=== PATIENT | female | born 1960 | race Caucasian/White ===

== ENCOUNTER 2016-12-18 03:04 | Inpatient (IN) ==
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
[2016-12-18] MEDS ORDERED: 0.9 % Sodium Chloride 1,000 ML IVC ONE (03:18)
[2016-12-18] MEDS ORDERED: Ketorolac 30 MG/ML VIAL IVP ONE (03:28)
[2016-12-18 03:44] LABS: Basophils # 0.1 K/mcL (0.0-0.2); Basophils % 0.7 %; Eosinophils # 0.2 K/mcL (0.0-0.6); Eosinophils % 1.8 %; Hemoglobin 13.6 g/dL (11.5-15.4); Immature Granulocytes % 0.5 % (0-4); Lymphocytes # 1.9 K/mcL (0.6-4.6); Lymphocytes % 22.5 %; Mean Corpuscular Hemoglobin 29.2 pg (28.0-33.3); Mean Corpuscular Volume 85.8 fL (83.0-100.0); Mean Platelet Volume 10.6 fL (9.4-12.4); Monocytes # 0.6 K/mcL (0.0-1.3); Monocytes % 7.3 %; Neutrophils # 5.6 K/mcL (1.6-8.9); Platelet Count 241 K/mcL (140-400); Red Blood Count 4.66 M/mcL (3.82-4.97); Red Cell Distribution Width 16.3 % (11.5-14.5); Segmented Neutrophils % 67.2 %
[2016-12-18 03:51] LABS: Calcium 8.5 mg/dL (8.6-10.8)
[2016-12-18 03:52] LABS: Potassium 2.5 mEq/L (3.5-4.5)
[2016-12-18] MEDS ORDERED: Potassium Effervescent 25 MEQ TABLET.EFF PO ONE (04:00)
[2016-12-18] MEDS ORDERED: Potassium Phosphate 44 MEQ in 0.9 % Sodium Chloride 250 ML IVPB ONE (04:01)
--- NOTE | 2016-12-18 07:49 | Internal Med History&Physical ---
Date of Encounter: 12/18/16 Time of Encounter: 07:44 Assessment and Plan (1) Syncope Current visit: Yes Status: Acute Patient presents with recurrent syncope due to orthostasis. She is on multiple blood pressure lowering medications including 80 mg Lasix as well as spironolactone for lower extremity swelling but not heart failure.. Hold blood pressure lowering medications. Hydrate patient. Check orthostatic vital signs. I would also check the dimer. Presentation is not suggestive of seizures. Prior cardiac workup showed no occlusive disease. CT scan of the head was performed because of head trauma and there is no bleed Qualifiers: Syncope type: unspecified Qualified Code(s): R55 - Syncope and collapse (2) Hypokalemia Current visit: Yes Status: Acute This will be replaced and rechecked. Also magnesium will be checked and replaced accordingly Internal Medicine - H&P: HPI Chief complaint: syncope History of present illness: Ms. Solorzano is a 56 year old female with multiple medical problems presents the emergency room today after syncopal episode. Over the past 1 1/2 month patient is having episodes of syncope mainly when standing up preceded by a period of lightheadedness. Patient regains consciousness soon as she falls down. She has never had any seizure like activity that was witnessed, no incontinence to urine or stool or tongue biting. Patient denies any focal weakness. Occasionally hits her head during these episodes. She had a similar episode yesterday she was walking at home passed out and hit her head. She was found to be hypotensive on arrival to ER 80/60. Patient is taking multiple blood pressure lowering medications including 80 mg of Lasix as well as spironolactone. She mentioned that she had lost about 20 pounds in the past 6 months. She denies any shortness of breath orthopnea paroxysmal nocturnal dyspnea. She mentions that Lasix is being taken for lower extremity swelling. She denies any chest pain or palpitations prior to these episodes. She denies any recent febrile illness. She had a coronary angiogram recently performed and mentioned that there was no occlusive disease. She denies any hematemesis, melena or hematochezia. Past Med Surg Social Fam HX - Past Medical History Medical history: aortic aneurysm, asthma, diabetes, hyperlipidemia, migraine Psychiatric history: ADHD, bipolar, schizophrenia, other - Past Surgical History Surgical History: , cholecystectomy, hysterectomy, knee replacement, orthopedic, other, pacemaker/AICD, other - Social History Smoking Status: Current every day smoker Packs per day: 1 Smokeless Tobacco Status: No Alcohol use: rarely Drug use: none - Family History Mother Living Status: Still Living Father Living Status: Still Living Internal Medicine - H&P: Meds Asenapine Maleate [Saphris] 5 mg SL HS 06/02/15 [History] Baclofen [Lioresal] 5 mg PO BID 06/02/15 [History] ClonazePAM [Clonazepam] 1 mg PO TID 06/02/15 [History] Levomilnacipran HCl [Fetzima] 120 mg PO QAM 06/02/15 [History] Topiramate [Topamax] 100 mg PO BID 06/02/15 [History] TraMADol [Ultram] 50 mg PO Q6H PRN 06/02/15 [History] Albuterol Neb [Proventil Neb] 2.5 mg IH BID PRN 07/12/15 [History] Albuterol Sulfate [Proair Respiclick] 2 puff IH Q4-6H PRN 07/12/15 [History] Amiloride [Midamor] 5 mg PO BID 07/12/15 [History] Armodafinil [Nuvigil] 250 mg PO DAILY 07/12/15 [History] Bupropion HBr [Aplenzin] 522 mg PO QAM 07/12/15 [History] Carbidopa/Levodopa ER 50/200 [Sinemet ER 50-200 Tab] 1 each PO HS 07/12/15 [ History] Cetirizine HCl [Zyrtec] 10 mg PO QPM 07/12/15 [History] Dextroamphetamine Sulfate [Dexedrine] 30 mg PO BID 07/12/15 [History] Docusate [Colace] 100 mg PO BID 07/12/15 [History] Eletriptan HBr [Relpax] 40 mg PO AD PRN 07/12/15 [History] Estradiol [Vivelle-Dot] 1 each TD 2XW 07/12/15 [History] Lubiprostone [Amitiza] 24 mcg PO BID 07/12/15 [History] Mometasone/Formoterol [Dulera 200 Mcg/5 Mcg Inhaler] 2 puff IH BID 07/12/15 [ History] Montelukast [Singulair] 10 mg PO QAM 07/12/15 [History] Naproxen [Naprosyn] 500 mg PO BID PRN 07/12/15 [History] Pantoprazole Sodium 40 mg PO BID 07/12/15 [History] Potassium Chloride 10 meq PO DAILY 07/12/15 [History] Prochlorperazine Maleate [Compazine] 10 mg PO Q8HR PRN 07/12/15 [History] Rosuvastatin [Crestor] 10 mg PO DAILY 07/12/15 [History] Sucralfate [Carafate] 1 gm PO TID 07/12/15 [History] Torsemide [Demadex] 40 mg PO BID 07/12/15 [History] Meclizine [Antivert] 25 mg PO TID PRN #21 tablet 07/13/15 [Rx] LevETIRAcetam [Keppra] 500 mg IV BID #60 vial 09/11/15 [Rx] Allergies oxcarbazepine [From Trileptal] Allergy (Verified 07/12/15 15:55) See Comments Patient unsure of reaction. Penicillins Allergy (Verified 07/12/15 15:55) Hives ezetimibe [From Zetia] Adverse Reaction (Verified 07/12/15 15:55) Vomiting All Systems PM: A 10-system review of systems was performed and is negative for pertinent findings except as documented above in the HPI. Review of systems: 10 point review systems is negative except for HPI. - Constitutional Vitals: Temp Pulse Resp BP Pulse Ox 97.7 F 63 16 97/67 96 12/18/16 07:39 12/18/16 07:39 12/18/16 07:39 12/18/16 07:39 12/18/16 07:39 Exam: Gen.: patient is alert oriented times 3 not in distress cardiac: normal S1 S2 no additional sounds are murmurs chest: clear to auscultation abdomen: soft nontender nondistended lower extremity lax calf muscles no swelling Neuro: no focal deficits Internal Med - H&P Results - Labs CBC & Chem 7: 12/18/16 03:20 12/18/16 03:20
[2016-12-18 09:02] LABS: Bilirubin,Urine Negative (Negative); Blood,Urine Negative (Negative); Clarity,Urine Cloudy (Clear); Color,Urine Yellow (Yellow); Glucose,Urine (UA) Normal (Normal); Ketones,Urine Negative (Negative); Leukocyte Esterase,Urine Small (Negative); Nitrite,Urine Negative (Negative); Protein,Urine Negative (Neg-Trace); Specific Gravity,Urine 1.018 (1.010-1.025); Urobilinogen,Urine Normal (Normal)
[2016-12-18 09:05] LABS: Hyaline Casts,Urine None Seen per lpf (None-Few); Squamous Epithelial Cell,Urine Many per lpf (None-Few); WBC,Urine 15-30 per hpf (0-3)
[2016-12-18 09:42] LABS: Bacteria,Urine Moderate per hpf (None-Few); Yeast,Urine Few per hpf (None Seen)
[2016-12-18] MEDS: 0.9 % Sodium Chloride 1,000 ML IVC SCH ×2 (11:45→19:59)
--- NOTE | 2016-12-18 12:03 | Electrocardiograph Report ---
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
[2016-12-18 12:59] LABS: Magnesium 1.5 mg/dL (1.6-2.6); Potassium 3.1 mEq/L (3.5-4.5)
[2016-12-18] MEDS ORDERED: Ketorolac 15 MG/ML VIAL IVP ONE (20:50)
[2016-12-18] MEDS: Famotidine 20 MG TABLET PO SCH (21:45)
[2016-12-19] MEDS: 0.9 % Sodium Chloride 1,000 ML IVC SCH ×2 (01:31→14:45)
[2016-12-19 05:07] LABS: Basophils % 0.4 %; Eosinophils # 0.2 K/mcL (0.0-0.6); Eosinophils % 2.8 %; Hematocrit 34.9 % (35.3-44.9); Immature Granulocytes % 0.3 % (0-4); Lymphocytes # 2.2 K/mcL (0.6-4.6); Lymphocytes % 32.3 %; Mean Corpuscular HGB Conc 32.7 g/dL (31.6-35.5); Mean Corpuscular Hemoglobin 28.8 pg (28.0-33.3); Mean Corpuscular Volume 88.1 fL (83.0-100.0); Mean Platelet Volume 10.7 fL (9.4-12.4); Monocytes # 0.6 K/mcL (0.0-1.3); Monocytes % 8.4 %; Neutrophils # 3.9 K/mcL (1.6-8.9); Platelet Count 210 K/mcL (140-400); Red Blood Count 3.96 M/mcL (3.82-4.97); Red Cell Distribution Width 16.3 % (11.5-14.5); Segmented Neutrophils % 55.8 %
[2016-12-19 05:21] LABS: Hemoglobin 11.4 g/dL (11.5-15.4)
[2016-12-19 05:55] LABS: BUN/Creatinine Ratio 17 (6-26); Blood Urea Nitrogen 15 mg/dL (7-20); Carbon Dioxide 26 mEq/L (19-29); Chloride 106 mEq/L (98-109); Glucose 79 mg/dL (70-99); Magnesium 1.8 mg/dL (1.6-2.6); Osmolality,Calculated 290 (280-300); Potassium 3.4 mEq/L (3.5-4.5); Sodium 140 mEq/L (136-145); eGFR For African Americans > 60 (> 60); eGFR For Non-African Americans > 60 (> 60)
[2016-12-19] MEDS: Famotidine 20 MG TABLET PO SCH (07:57)
[2016-12-19] MEDS ORDERED: Ketorolac 15 MG/ML VIAL IVP ONE (08:05)
[2016-12-19] MEDS ORDERED: Albuterol 2.5 MG/3 ML NEBULIZER IH PRN (08:55)
[2016-12-19] MEDS ORDERED: Acyclovir 200 MG CAPSULE PO PRN (08:55)
--- NOTE | 2016-12-19 10:41 | Internal Med Progress Note ---
Date of Encounter: 12/19/16 Time of Encounter: 09:45 - Assessment and plan (1) Syncope Current Visit: Yes Status: Acute Assessment and plan: Patient stating she has been having syncopal episodes for the past 1-1/[address] negative. Chest CT negative. Head CT negative. Urinalysis abnormal however patient asymptomatic, culture pending. OT and PT have surmised she has no needs. Hypomagnesemia resolved, hypokalemia nearly resolved. Likely related to patient's medications. She is on several atypical antipsychotic medications as well as torsemide 40 mg twice a day, spironolactone 25 mg daily which have both been held. She has also lost 20 pounds over the last 6 months which she attributes her history of gastric bypass surgery 4 years ago. It is certainly possible that the patient's dosages of her home medications may need adjusted now that she has lost weight. She states that when she does not feel well, she simply does not eat and she states that has been the case for the past 4 years since her surgery. Her main complaint at this time is right sided rib pain and right-sided hip pain status post fall. Ecchymosis noted to right-sided rib cage, chest CT unremarkable. We will address her pain and monitor. Orthostatic vital signs are abnormal, will repeat daily. ITS Impressions Cervical Spine CT 12/18/16 03:25 IMPRESSION: No acute abnormality of the cervical spine. D/ / Nuria Lomas MD / Nuria Lomas MD Interpreting Provider: Nuria Lomas MD Chest CT 12/18/16 03:25 IMPRESSION: 1. No acute abnormality in the chest. No evidence of acute traumatic injury. 2. Ascending aortic aneurysm measuring 4.2 cm. D/ / 12/18/2016 07:45:16 Nuria Lomas MD / peter Interpreting Provider: Nuria Lomas MD Head CT 12/18/16 03:25 IMPRESSION: No acute intracranial abnormality. D/ / Nuria Lomas MD / Nuria Lomas MD Interpreting Provider: Nuria Lomas MD Qualifiers: Syncope type: unspecified Qualified Code(s): R55 - Syncope and collapse (2) Dizziness Current Visit: No Status: Resolved (3) Hypokalemia Current Visit: Yes Status: Acute Assessment and plan: improving; will trend. Hypomagnesemia resolved (4) Hypomagnesemia Current Visit: Yes Status: Resolved (5) Abnormal urinalysis Current Visit: Yes Status: Acute Assessment and plan: Culture pending. Patient denies dysuria. (6) S/P gastric bypass Current Visit: Yes Status: Chronic Assessment and plan: Patient stating she had gastric bypass surgery approximately 4 years ago. She states that since that time, she has had difficulty eating. She attributes this to her 20 pound weight loss over the last 6 months. (7) Unintentional weight loss Current Visit: Yes Status: Chronic (8) Bipolar disorder Current Visit: No Status: Chronic Assessment and plan: Mood and affect stable Qualifiers: Active/Remission status: remission status unspecified Qualified Code(s): F31.9 - Bipolar disorder, unspecified (9) Schizoaffective disorder, chronic condition Current Visit: No Status: Chronic (10) ADHD (attention deficit hyperactivity disorder) Current Visit: No Status: Chronic Qualifiers: Attention deficit-hyperactivity disorder type: unspecified Qualified Code(s ): F90.9 - Attention-deficit hyperactivity disorder, unspecified type (11) DVT prophylaxis Current Visit: No Status: Acute Assessment and plan: IPC's ordered. - Subjective Interval history: Patient seen and examined. On examination, patient resting on her side in bed. Patient complaining of severe pain to her back and right-sided rib cage. She states she is unable to take deep breaths secondary to pain. She denies dysuria. - Constitutional Vitals: Temp Pulse Resp BP Pulse Ox 97.8 F 68 17 127/80 99 12/19/16 07:24 12/19/16 07:24 12/19/16 07:24 12/19/16 07:24 12/19/16 07:50 General appearance: Present: A&O X 3, pleasant, no acute distress, answers questions appropriately - Head Head exam: Present: atraumatic, normocephalic - Eye Eye exam: Present: PERRL, conjuntiva pink, sclera anicteric Pupils: Present: PERRL - Neck Neck exam general surgery: Present: supple, trachea midline. Absent: lymphadenopathy - Respiratory Respiratory exam: Present: chest wall tenderness, decreased breath sounds. Absent: accessory muscle use, rales, respiratory distress, rhonchi, wheezes - Cardiovascular Cardiovascular exam: Present: RRR, +S1, +S2. Absent: diastolic murmur, gallop, rubs, systolic murmur - GI/Abdominal GI/Abdominal exam: Present: normal bowel sounds, soft, no peritoneal signs. Absent: distended, tenderness - Extremities Exam Extremities exam: Present: warm, radial pulses palpable and symetrical. Absent : calf tenderness, cyanotic, pedal edema - Neurological Exam Neurological exam: Present: alert, CN II-XII intact, oriented X3, no focal deficits, strengths equal and symetr throughout. Absent: pronater drift, facial droop, speech deficit - Skin Skin exam: Present: dry, intact, pallor, warm - Expanded Skin Exam Type of lesion: Present: abrasion Distribution of rash: Present: chest Description of rash: Present: erythematous (ecchymotic), tenderness Internal Medicine: Result - Labs CBC & Chem 7: 12/19/16 04:11 12/19/16 04:11 Labs: Short CBC 12/19/16 Range/Units 04:11 WBC 6.9 (4.3-11.1) K/mcL Hgb 11.4 L D (11.5-15.4) g/dL Hct 34.9 L (35.3-44.9) % Plt Count 210 (140-400) K/mcL Neutrophils # 3.9 (1.6-8.9) K/mcL BMP 12/18/16 12/19/16 12:34 04:11 Sodium 140 Potassium 3.1 L 3.4 L Chloride 106 Carbon Dioxide 26 BUN 15 Creatinine 0.86 Glucose 79 Calcium 8.0 L Consult Discharge Plan - Plan Referrals: Lizette Nixon CNP [Partnered Physician] - 12/26/16 10:40 am
[2016-12-19] MEDS ORDERED: Naloxone 0.4 MG/ML INJ IVP PRN (10:50)
[2016-12-19] MEDS ORDERED: *HR* HYDROcodone/Acet 5/325 mg TABLET PO PRN (10:50)
[2016-12-19] MEDS ORDERED: Acetaminophen 325 MG TABLET PO PRN (10:50)
[2016-12-19] MEDS ORDERED: Topiramate 25 MG TABLET PO SCH (12:00)
[2016-12-19] MEDS: Pregabalin 75 MG CAPSULE PO SCH ×2 (12:23→21:23)
[2016-12-19] MEDS: *HR* Morphine 2 MG/ML SYRINGE IVP PRN (12:24)
[2016-12-19] MEDS: PROTRIPTYLINE HCL 10 MG PO SCH ×2 (12:29→21:26)
[2016-12-19] MEDS: (Armodafinil [Nuvigil] 250 MG) PO SCH (12:29)
[2016-12-19] MEDS: DROXIDOPA 100 MG PO SCH ×2 (12:29→21:26)
[2016-12-19] MEDS: (Brexpiprazole [Rexulti] 2 MG) PO SCH (12:29)
[2016-12-19] MEDS: (Lubiprostone [Amitiza] 24 MCG) PO SCH ×2 (12:29→21:26)
[2016-12-19] MEDS: (Levomilnacipran Hcl [Fetzima] 120 MG) PO SCH (12:29)
[2016-12-19] MEDS: clonazePAM 0.5 MG TABLET PO SCH ×2 (14:45→21:23)
[2016-12-19] MEDS ORDERED: Loratadine 10 MG TABLET PO SCH (18:00)
[2016-12-19] MEDS ORDERED: (Asenapine Maleate [Saphris] 10 MG) SL SCH (21:00)
[2016-12-19] MEDS ORDERED: ASENAPINE MALEATE 5 MG SL SCH (21:00)
[2016-12-19] MEDS ORDERED: CARIPRAZINE HCL 6 MG PO SCH (21:00)
[2016-12-19] MEDS ORDERED: Carbidopa/Levodopa ER 50/200 TABLET PO SCH (21:00)
[2016-12-19] MEDS ORDERED: Topiramate 100 MG TABLET PO SCH (21:00)
[2016-12-20] MEDS: 0.9 % Sodium Chloride 1,000 ML IVC SCH (00:59)
[2016-12-20] MEDS: *HR* Morphine 2 MG/ML SYRINGE IVP PRN ×2 (01:00→08:00)
[2016-12-20 06:02] LABS: Basophils % 0.5 %; Eosinophils # 0.3 K/mcL (0.0-0.6); Eosinophils % 3.2 %; Hematocrit 33.5 % (35.3-44.9); Immature Granulocytes % 0.5 % (0-4); Lymphocytes # 1.9 K/mcL (0.6-4.6); Lymphocytes % 22.9 %; Mean Corpuscular HGB Conc 32.8 g/dL (31.6-35.5); Mean Corpuscular Hemoglobin 29.8 pg (28.0-33.3); Mean Corpuscular Volume 90.8 fL (83.0-100.0); Mean Platelet Volume 10.6 fL (9.4-12.4); Monocytes # 0.6 K/mcL (0.0-1.3); Monocytes % 7.7 %; Neutrophils # 5.4 K/mcL (1.6-8.9); Platelet Count 192 K/mcL (140-400); Red Blood Count 3.69 M/mcL (3.82-4.97); Red Cell Distribution Width 16.1 % (11.5-14.5); Segmented Neutrophils % 65.2 %
[2016-12-20 06:17] LABS: BUN/Creatinine Ratio 14 (6-26); Blood Urea Nitrogen 10 mg/dL (7-20); Calcium 7.8 mg/dL (8.6-10.8); Carbon Dioxide 27 mEq/L (19-29); Chloride 110 mEq/L (98-109); Glucose 88 mg/dL (70-99); Magnesium 1.8 mg/dL (1.6-2.6); Osmolality,Calculated 286 (280-300); Potassium 3.4 mEq/L (3.5-4.5); Sodium 139 mEq/L (136-145); eGFR For African Americans > 60 (> 60); eGFR For Non-African Americans > 60 (> 60)
[2016-12-20] MEDS: DROXIDOPA 100 MG PO SCH (07:56)
[2016-12-20] MEDS: PROTRIPTYLINE HCL 10 MG PO SCH (07:56)
[2016-12-20] MEDS: (Brexpiprazole [Rexulti] 2 MG) PO SCH (07:56)
[2016-12-20] MEDS: (Levomilnacipran Hcl [Fetzima] 120 MG) PO SCH (07:56)
[2016-12-20] MEDS: (Lubiprostone [Amitiza] 24 MCG) PO SCH (07:56)
[2016-12-20] MEDS: (Armodafinil [Nuvigil] 250 MG) PO SCH (07:56)
[2016-12-20] MEDS: Famotidine 20 MG TABLET PO SCH (08:00)
[2016-12-20] MEDS: Pregabalin 75 MG CAPSULE PO SCH (08:01)
[2016-12-20] MEDS: clonazePAM 0.5 MG TABLET PO SCH (08:01)
[2016-12-20] MEDS ORDERED: Cosyntropin 250 MCG/2 ML VIAL IVP ONE (08:09)
[2016-12-20 10:35] VITALS: BP 112/76
--- NOTE | 2016-12-20 12:23 | Discharge Summary ---
Date of Encounter: 12/20/16 Time of Encounter: 12:21 - Discharge Diagnosis (1) Syncope Priority: Primary Status: Acute Qualifiers: Syncope type: unspecified Qualified Code(s): R55 - Syncope and collapse (2) Dizziness Priority: Primary Status: Acute (3) Hypokalemia Priority: Primary Status: Acute (4) Hypomagnesemia Priority: Primary Status: Resolved (5) Diabetes mellitus Priority: Secondary Status: Chronic Qualifiers: Diabetes mellitus type: type 2 Diabetes mellitus complication status: with unspecified complications Diabetes mellitus group home insulin use: without oysterman use Qualified Code(s): E11.8 - Type 2 diabetes mellitus with unspecified complications (6) Bipolar disorder Priority: Secondary Status: Chronic Qualifiers: Active/Remission status: remission status unspecified Qualified Code(s): F31.9 - Bipolar disorder, unspecified (7) ADHD (attention deficit hyperactivity disorder) Priority: Secondary Status: Chronic Qualifiers: Attention deficit-hyperactivity disorder type: unspecified Qualified Code(s ): F90.9 - Attention-deficit hyperactivity disorder, unspecified type (8) Schizoaffective disorder, chronic condition Priority: Secondary Status: Chronic (9) S/P gastric bypass Priority: Secondary Status: Chronic - Discharge Medications Prescriptions: Hydrocortisone [Cortef] 20 mg PO DAILY #20 tablet Hydrocortisone [Cortef] 10 mg PO HS #20 tablet Home Medications: Baclofen [Lioresal] 10 mg PO TID PRN 06/02/15 [History] ClonazePAM [Clonazepam] 0.5 mg PO TID 06/02/15 [History] Levomilnacipran HCl [Fetzima] 120 mg PO QAM 06/02/15 [History] Topiramate [Topamax] 50 mg PO 1200 06/02/15 [History] TraMADol [Ultram] 50 mg PO Q6H PRN 06/02/15 [History] Albuterol Neb [Proventil Neb] 2.5 mg IH BID PRN 07/12/15 [History] Albuterol Sulfate [Proair Respiclick] 2 puff IH Q4-6H PRN 07/12/15 [History] Amiloride [Midamor] 5 mg PO BID 07/12/15 [History] Armodafinil [Nuvigil] 250 mg PO DAILY 07/12/15 [History] Carbidopa/Levodopa ER 50/200 [Sinemet ER 50-200 Tab] 1 tab PO HS 07/12/15 [ History] Cetirizine HCl [Zyrtec] 10 mg PO QPM 07/12/15 [History] Docusate [Colace] 100 mg PO BID 07/12/15 [History] Eletriptan HBr [Relpax] 40 mg PO AD PRN 07/12/15 [History] Lubiprostone [Amitiza] 24 mcg PO BID 07/12/15 [History] Montelukast [Singulair] 10 mg PO QAM 07/12/15 [History] Naproxen [Naprosyn] 500 mg PO BID PRN 07/12/15 [History] Pantoprazole Sodium 40 mg PO BID 07/12/15 [History] Potassium Chloride 10 meq PO TID 07/12/15 [History] Sucralfate [Carafate] 1 gm PO TID 07/12/15 [History] Acyclovir [Zovirax] 400 mg PO TID PRN 12/18/16 [History] Asenapine Maleate [Saphris] 10 mg SL HS 12/18/16 [History] Brexpiprazole [Rexulti] 2 mg PO DAILY 12/18/16 [History] Cariprazine HCl [Vraylar] 6 mg PO HS 12/18/16 [History] Droxidopa [Northera] 100 mg PO TID 12/18/16 [History] Estradiol [Climara] 0.1 mg TD QWEEK 12/18/16 [History] Fludrocortisone Acetate [Florinef] 0.1 mg PO TID 12/18/16 [History] Guanfacine HCl [Intuniv] 3 mg PO DAILY 12/18/16 [History] Meclizine [Antivert] 25 mg PO QPM 12/18/16 [History] Naltrexone HCl [Revia] 50 mg PO 1200 12/18/16 [History] Prazosin HCl [Minipress] 5 mg PO HS 12/18/16 [History] Prazosin [Minipress] 2 mg PO DAILY 12/18/16 [History] Pregabalin [Lyrica] 75 mg PO BID 12/18/16 [History] Protriptyline HCl 10 mg PO BID 12/18/16 [History] Protriptyline HCl 10 mg PO BID 12/18/16 [History] Tiagabine [Gabitril] 4 mg PO BID 12/18/16 [History] Topiramate 100 mg PO HS 12/18/16 [History] Hydrocortisone [Cortef] 10 mg PO HS #20 tablet 12/20/16 [Rx] Hydrocortisone [Cortef] 20 mg PO DAILY #20 tablet 12/20/16 [Rx] Allergies/Adverse Reactions: Allergies oxcarbazepine [From Trileptal] Allergy (Verified 12/18/16 10:31) See Comments Patient unsure of reaction. Penicillins Allergy (Verified 12/18/16 10:31) Hives ezetimibe [From Zetia] Adverse Reaction (Verified 12/18/16 10:31) Vomiting - Notes to Outpatient Provider Patient needs to have her ACTH followed up and referral to Endocrinology for possible adrenal insufficiency; she is being discharged on oral Hydrocortisone; Date of admission: 12/18/16 07:37 Primary care physician: Elkin Zamora Discharging clinician: Alyx Melo Anticipated date of discharge: 12/20/16 - Patient Status Disposition: Home, Self-Care Condition: Fair Functional capacity at discharge: independent ambulation Overall status at discharge: patient is progressing back to baseline - Discharge Instructions Follow Up With: Lizette Nixon CNP [Partnered Physician] - 12/26/16 10:40 am Additional Instructions: F/up with Endocrinology in 2-3 weeks, to be referred by PCP - Diet and Activity Activity: resume usual activities as tolerated Diet: diabetic diet, low fat, low cholesterol, low salt diet Hospital course: Ms. Solorzano is a 56 year old female with significant psychiatric history including schizophrenia, ADHD, bipolar disorder, who was admitted with recurrent episodes of dizziness and syncope. Patient was hypotensive at the time of admission, noted to be on polypharmacy which include several blood pressure lowering medications for leg swelling and underlying psychiatric issues. Patient also gives history of recent weight loss, which has been ongoing since her gastric bypass surgery. Initial labs showed no acute abnormality. CT head, CT chest and CT cervical spine showed no evidence of trauma/fracture, infection. Diuretics were held at the time of admission. Recent cardiac workup showed normal coronaries with no occlusive disease, per previous notes. Patient was noted to have low morning cortisol level. ACTH level is pending and she was also noted to have lower than normal cortisol levels after ACTH stimulation test. Patient has been following up with cardiology as an outpatient for dizziness and syncope and is already noted to be on multiple medications including fludrocortisone, Northera, Meclizine, that have failed to improve her symptoms. She will be started on oral hydrocortisone at this time and she is otherwise medically stable for discharge with outpatient follow-up with primary care provider and possible referral to endocrinology for further workup for possible adrenal insufficiency. She is also on multiple psychiatric medications with potential to cause dizziness and hypotension, however she prefers to follow with her psychiatrist in [place] before making any adjustments to her current medication regimen. - Time Spent with Patient Total time spent providing and/or coordinating discharge services: Greater than 30 minutes (50 min) - Constitutional Vitals: Temp Pulse Resp BP Pulse Ox 98.2 F 68 15 112/76 99 12/20/16 10:34 12/20/16 10:34 12/20/16 10:34 12/20/16 10:34 12/20/16 10:34 General appearance: Present: A&O X 3, answers questions appropriately - Respiratory Respiratory exam: Present: CTAB. Absent: accessory muscle use, rales, rhonchi, wheezes - Cardiovascular Cardiovascular exam: Present: RRR, +S1, +S2. Absent: diastolic murmur, gallop, rubs, systolic murmur
== END 2016-12-20 13:32 | disposition home or self-care (01) | DRG 312 ==
LOC: 3BNU 03:04 → EMEROO 03:04 → 3BNU 05:52 → SUATTDRO 07:37
PROVIDERS: ADMIT Internal Medicine; ATTEND Internal Medicine

== ENCOUNTER 2017-03-21 06:06 | Inpatient (IN) ==
[2017-03-21 06:35] LABS: Basophils # 0.1 K/mcL (0.0-0.2); Basophils % 0.6 %; Eosinophils # 0.5 K/mcL (0.0-0.6); Eosinophils % 4.5 %; Hematocrit 40.5 % (35.3-44.9); Immature Granulocytes % 0.3 % (0-4); Lymphocytes # 2.9 K/mcL (0.6-4.6); Lymphocytes % 29.4 %; Mean Corpuscular HGB Conc 32.1 g/dL (31.6-35.5); Mean Corpuscular Hemoglobin 26.2 pg (28.0-33.3); Mean Corpuscular Volume 81.7 fL (83.0-100.0); Mean Platelet Volume 10.5 fL (9.4-12.4); Monocytes # 0.8 K/mcL (0.0-1.3); Monocytes % 8.3 %; Neutrophils # 5.6 K/mcL (1.6-8.9); Platelet Count 293 K/mcL (140-400); Red Blood Count 4.96 M/mcL (3.82-4.97); Red Cell Distribution Width 14.1 % (11.5-14.5); Segmented Neutrophils % 56.9 %
[2017-03-21 06:43] LABS: INR 1.1; Prothrombin Time 11.8 Seconds (9.4-12.1)
[2017-03-21 06:45] LABS: Activated Partial Thrombo Time 32.6 Seconds (26.0-36.0)
[2017-03-21 06:46] LABS: Calcium 8.9 mg/dL (8.6-10.8); Potassium 2.6 mEq/L (3.5-4.5)
--- NOTE | 2017-03-21 06:48 | Emergency Department Note ---
Disposition Clinical Impression: Syncope due to orthostatic hypotension, Hypokalemia Chest pain Qualifiers: Chest pain type: unspecified Qualified Code(s): R07.9 - Chest pain, unspecified Disposition: Admitted As Inpatient Condition: Fair Time of Disposition: 08:59 Syncope HPI - General Chief Complaint: ED Syncope Stated Complaint: Syncope Time Seen by Provider: 03/21/17 06:09 Source: patient, EMS Limitations: no limitations Nursing Notes Reviewed: Yes Vital Signs Reviewed: Yes - History of Present Illness HPI Narrative: Alert and oriented 56-year-old female presents for evaluation of a syncopal episode just prior to arrival. The patient states that she had gotten out of bed, and proceeded to go to the restroom. She states "I did not make it 10 feet before I passed out". She states that this fall was witnessed by one of her roommates who immediately came to her assistance and helped her back up. She states that there was no prolonged downtime. She is unsure whether or not she sustained any injuries from the fall however she complains of a slight headache. She states she has a history of migraines however this is not her typical migraine as "it is nowhere near as bad as one of my migraines". She denies any other injuries that could have perhaps been sustained from this fall. She does complain of some slight substernal/left-sided chest "squeezing" . She rates as a 5 out of 10 on a 10 point scale. She states that this pain does radiate up into the right side of her neck. She denies any fever, chills, nausea, vomiting, abdominal pain, or diarrhea. She states the only prodromal symptoms she had prior to her syncopal episode was a sensation of bilateral lower extremity weakness. She states she has a history of multiple syncopal episodes in the past. She states that she has issues with her blood pressure running too low. She states that her sap abap developer in [place] has evaluated her for this several times. She states that "they even having a medication to help raise my blood pressure". 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 Number of episodes: 1 Duration: second(s) Prodromal Symptoms: other (Bilateral lower extremity weakness) Witnessed: yes - by bystander Context: getting out of bed Injuries Sustained Associated with Event: head Current Symptoms: headache, chest pain History: previous syncopal episode, prior work-ups Treatments prior to arrival: none - Related Data Home Medications Medication Instructions Recorded Confirmed Levomilnacipran HCl [Fetzima] 120 mg PO QAM 06/02/15 03/21/17 Topiramate [Topamax] 50 mg PO QAM 06/02/15 03/21/17 TraMADol [Ultram] 100 mg PO TID PRN 06/02/15 03/21/17 clonazePAM [Clonazepam] 0.5 mg PO TID 06/02/15 03/21/17 Carbidopa/Levodopa ER 50/200 1 tab PO HS 07/12/15 03/21/17 [Sinemet ER 50-200 Tab] Cetirizine HCl [Zyrtec] 10 mg PO QPM 07/12/15 03/21/17 Lubiprostone [Amitiza] 24 mcg PO BID 07/12/15 03/21/17 Montelukast [Singulair] 10 mg PO QPM 07/12/15 03/21/17 Naproxen [Naprosyn] 500 mg PO BID PRN 07/12/15 03/21/17 Pantoprazole Sodium 40 mg PO BID 07/12/15 03/21/17 Potassium Chloride 20 meq PO BID 07/12/15 03/21/17 Sucralfate [Carafate] 1 gm PO TID 07/12/15 03/21/17 Cariprazine HCl [Vraylar] 6 mg PO HS 12/18/16 03/21/17 Droxidopa [Northera] 300 mg PO TID 12/18/16 03/21/17 Fludrocortisone Acetate [Florinef] 0.2 mg PO DAILY 12/18/16 03/21/17 Meclizine [Antivert] 25 mg PO DAILY PRN 12/18/16 03/21/17 Naltrexone HCl [Revia] 50 mg PO 1200 12/18/16 03/21/17 Pregabalin [Lyrica] 75 mg PO BID 12/18/16 03/21/17 Protriptyline HCl 10 mg PO BID 12/18/16 03/21/17 Topiramate 100 mg PO HS 12/18/16 03/21/17 Guanfacine HCl [Intuniv] 4 mg PO DAILY 03/21/17 03/21/17 Linaclotide [Linzess] 145 mcg PO DAILY 03/21/17 03/21/17 Prazosin HCl [Minipress] 2 mg PO HS 03/21/17 03/21/17 Spironolactone [Aldactone] 25 mg PO DAILY 03/21/17 03/21/17 Tiagabine HCl [Gabitril] 4 mg PO BID 03/21/17 03/21/17 Torsemide [Demadex] 40 mg PO QAM 03/21/17 03/21/17 Vortioxetine Hydrobromide 5 mg PO DAILY 03/21/17 03/21/17 [Trintellix] hydrOXYzine pamoate [HydrOXYzine 25 mg PO TID PRN 03/21/17 03/21/17 Pamoate] Previous Rx's Medication Instructions Recorded Hydrocortisone [Cortef] 10 mg PO HS #20 tablet 12/20/16 Hydrocortisone [Cortef] 20 mg PO DAILY #20 tablet 12/20/16 Allergies Allergy/AdvReac Type Severity Reaction Status Date / Time oxcarbazepine Allergy See Verified 03/21/17 06:08 [From Trileptal] Comments Penicillins Allergy Hives Verified 03/21/17 06:08 ezetimibe [From Zetia] AdvReac Vomiting Verified 03/21/17 06:08 All systems ED: reviewed and negative except as stated. Constitutional: Denies: fever, chills, weakness, weight change Eyes: Denies: eye pain, eye discharge, vision change ENT ED: Denies: ear pain, throat pain, dental pain, hearing loss, epistaxis, congestion, dysphagia Cardiovascular: Reports: as per HPI, chest pain, syncope. Denies: palpitations , dyspnea on exertion, edema Respiratory: Denies: cough, dyspnea, wheezes, hemoptysis, stridor Gastrointestinal: Denies: abdominal pain, nausea, vomiting, diarrhea, constipation, hematemesis, melena, hematochezia Genitourinary: Denies: dysuria, frequency, hematuria, discharge Musculoskeletal: Denies: back pain, neck pain, arthralgia, myalgia Integumentary: Denies: rash, abrasion, lesions Neurological: Reports: as per HPI, headache. Denies: weakness, numbness, paresthesias, confusion, abnormal gait, vertigo Psychiatric: Denies: anxiety, depression, suicidal thoughts, homicidal thoughts , auditory hallucinations, visual hallucinations Endocrine: Denies: fatigue Hematological/Lymphatic: Denies: easy bleeding, easy bruising Allergic/Immunologic: Denies: facial swelling, urticaria Past Medical History - Past Medical History Attestation: Yes The following information was validated with the patient. Source: patient, nursing notes reviewed Medical history: Reports: aortic aneurysm, asthma, diabetes, hyperlipidemia, migraine Surgical history: Reports: , cholecystectomy, hysterectomy, knee replacement, orthopedic, other, pacemaker/AICD, other Psychiatric history: Reports: ADHD, bipolar, schizophrenia, other - Social History Smoking Status: Current every day smoker Smokeless Tobacco Status: No Alcohol use: Reports: rarely Drug use: Reports: none Physical Exam - General Limitations: no limitations General appearance: alert - Head Head exam: atraumatic, normocephalic, normal inspection - Eye Eye exam: Present: normal appearance, PERRL, EOMI. Absent: nystagmus - Expanded Eye Exam Pupils: Bilateral: regular, round, reactive, size (2) - ENT ENT exam: normal exam, normal oropharynx, mucous membranes moist, mucous membranes dry - Neck Neck exam: Present: normal inspection, full ROM, trachea midline. Absent: tenderness, lymphadenopathy - Chest Chest inspection: Present: normal inspection, symmetric chest wall rise - Respiratory Respiratory exam: Present: normal lung sounds bilaterally. Absent: respiratory distress, wheezes, stridor, accessory muscle use, prolonged expiratory phase - Cardiovascular Cardiovascular exam: Present: regular rate, normal rhythm, normal heart sounds - Abdominal Exam Abdominal exam: Present: soft, Non-Tender, normal bowel sounds. Absent: tenderness, distention, guarding, rebound, rigidity, trauma - Extremities Exam Extremities exam: Present: normal inspection, full ROM. Absent: tenderness, pedal edema - Back Exam Back exam: Present: normal inspection, full ROM. Absent: tenderness, vertebral tenderness - Neurological Exam Neurological exam: Present: alert, oriented X3 - Psychiatric Psychiatric exam: Present: normal affect, normal mood - Skin Skin exam: Present: warm, dry, intact, normal color Course Course Narrative: Orthostatic vital signs were obtained and are as follows. Lying: Blood pressure 91/69, heart rate 71. Sitting: Blood pressure 89/67, heart rate 73. Standing: Blood pressure 56/39, rate 86. 0730: I have discussed this patient's case with Dr. Artie Flores. Dr. Artie Flores has had a [id number] evaluation with the patient. She agrees with the plan as well as admission to the hospitalist service for further evaluation and observation. 0855: I spoke with Dr. Alvarez of the hospitalist's service. Dr. Alvarez has accepted the patient for further observation. Vital Signs Temperature 98.9 F 03/21/17 06:10 Pulse Rate 75 03/21/17 06:10 Respiratory Rate 18 03/21/17 06:10 Blood Pressure 100/68 03/21/17 06:10 O2 Sat by Pulse Oximetry 98 03/21/17 06:10 Temperature 98.9 F 03/21/17 06:10 Pulse Rate 60 03/21/17 08:31 Respiratory Rate 16 03/21/17 08:31 Blood Pressure 104/77 03/21/17 08:31 O2 Sat by Pulse Oximetry 94 03/21/17 08:31 Oxygen Delivery Oxygen Delivery Room Air Syncope - Medical Records Medical records reviewed: Yes I reviewed the patient's medical records. - Lab Data Lab results reviewed: Yes I reviewed the patient's lab results. Lab results narrative: Laboratory Last Values WBC 9.9 K/mcL (4.3-11.1) 03/21/17 06:15 RBC 4.96 M/mcL (3.82-4.97) 03/21/17 06:15 Hgb 13.0 g/dL (11.5-15.4) 03/21/17 06:15 Hct 40.5 % (35.3-44.9) 03/21/17 06:15 MCV 81.7 fL (83.0-100.0) L 03/21/17 06:15 MCH 26.2 pg (28.0-33.3) L 03/21/17 06:15 MCHC 32.1 g/dL (31.6-35.5) 03/21/17 06:15 RDW 14.1 % (11.5-14.5) 03/21/17 06:15 Plt Count 293 K/mcL (140-400) 03/21/17 06:15 MPV 10.5 fL (9.4-12.4) 03/21/17 06:15 Immature Gran % 0.3 % (0-4) 03/21/17 06:15 Seg Neutrophils % 56.9 % 03/21/17 06:15 Lymphocytes % 29.4 % 03/21/17 06:15 Monocytes % 8.3 % 03/21/17 06:15 Eosinophils % 4.5 % 03/21/17 06:15 Basophils % 0.6 % 03/21/17 06:15 Neutrophils # 5.6 K/mcL (1.6-8.9) 03/21/17 06:15 Lymphocytes # 2.9 K/mcL (0.6-4.6) 03/21/17 06:15 Monocytes # 0.8 K/mcL (0.0-1.3) 03/21/17 06:15 Eosinophils # 0.5 K/mcL (0.0-0.6) 03/21/17 06:15 Basophils # 0.1 K/mcL (0.0-0.2) 03/21/17 06:15 PT 11.8 Seconds (9.4-12.1) 03/21/17 06:15 INR 1.1 03/21/17 06:15 APTT 32.6 Seconds (26.0-36.0) 03/21/17 06:15 Sodium 140 mEq/L (136-145) 03/21/17 06:15 Potassium 2.6 mEq/L (3.5-4.5) L 03/21/17 06:15 Chloride 102 mEq/L (98-109) 03/21/17 06:15 Carbon Dioxide 29 mEq/L (19-29) 03/21/17 06:15 BUN 16 mg/dL (7-20) 03/21/17 06:15 Creatinine 1.16 mg/dL (0.57-1.11) H 03/21/17 06:15 Est GFR ( Amer) 59 (> 60) L 03/21/17 06:15 Est GFR (Non-Af Amer) 48 (> 60) L 03/21/17 06:15 BUN/Creatinine Ratio 14 (6-26) 03/21/17 06:15 Glucose 102 mg/dL (70-99) H 03/21/17 06:15 POC Glucose 208 (58-89) H 03/21/17 06:43 Calculated Osmolality 291 (280-300) 03/21/17 06:15 Lactic Acid 0.9 mmol/L (0.5-2.2) 03/21/17 06:47 Calcium 8.9 mg/dL (8.6-10.8) 03/21/17 06:15 Magnesium 1.9 mg/dL (1.6-2.6) 03/21/17 06:15 Creatine Kinase 39 Units/L (29-168) 03/21/17 06:15 Troponin I 0.01 ng/mL (0-0.03) 03/21/17 06:15 Ur Specimen Adequacy See below A 03/21/17 06:50 Urine Color Yellow (Yellow) 03/21/17 06:50 Urine Clarity Turbid (Clear) A 03/21/17 06:50 Urine pH 6.0 pH Units (5.0-8.0) 03/21/17 06:50 Ur Specific [place] 1.017 (1.010-1.025) 03/21/17 06:50 Urine Protein Trace mg/dL (Neg-Trace) 03/21/17 06:50 Urine Glucose (UA) Normal mg/dL (Normal) 03/21/17 06:50 Urine Ketones Negative mg/dL (Negative) 03/21/17 06:50 Urine Blood Negative (Negative) 03/21/17 06:50 Urine Nitrite Negative (Negative) 03/21/17 06:50 Urine Bilirubin Negative (Negative) 03/21/17 06:50 Urine Urobilinogen Normal mg/dL (Normal) 03/21/17 06:50 Ur Leukocyte Esterase Moderate (Negative) H 03/21/17 06:50 Urine Microscopic RBC 0-3 per hpf (0-3) 03/21/17 06:50 Urine Microscopic WBC 5-15 per hpf (0-3) H 03/21/17 06:50 Ur Squamous Epith Cells Many per lpf (None-Few) H 03/21/17 06:50 Calcium Oxalate Crystal Present 03/21/17 06:50 Urine Bacteria None Seen per hpf (None-Few) 03/21/17 06:50 Hyaline Casts None Seen per lpf (None-Few) 03/21/17 06:50 Result diagrams: 03/21/17 06:15 03/21/17 06:15 Lab Results 03/21/17 03/21/17 03/21/17 Range/Units 06:15 06:15 06:15 WBC 9.9 (4.3-11.1) K/mcL RBC 4.96 (3.82-4.97) M/mcL Hgb 13.0 (11.5-15.4) g/dL Hct 40.5 (35.3-44.9) % MCV 81.7 L (83.0-100.0) fL MCH 26.2 L (28.0-33.3) pg MCHC 32.1 (31.6-35.5) g/dL RDW 14.1 (11.5-14.5) % Plt Count 293 (140-400) K/mcL MPV 10.5 (9.4-12.4) fL Immature Gran % 0.3 (0-4) % Seg Neutrophils % 56.9 % Lymphocytes % 29.4 % Monocytes % 8.3 % Eosinophils % 4.5 % Basophils % 0.6 % Neutrophils # 5.6 (1.6-8.9) K/mcL Lymphocytes # 2.9 (0.6-4.6) K/mcL Monocytes # 0.8 (0.0-1.3) K/mcL Eosinophils # 0.5 (0.0-0.6) K/mcL Basophils # 0.1 (0.0-0.2) K/mcL PT 11.8 (9.4-12.1) Seconds INR 1.1 APTT 32.6 (26.0-36.0) Seconds Sodium 140 (136-145) mEq/L Potassium 2.6 L (3.5-4.5) mEq/L Chloride 102 (98-109) mEq/L Carbon Dioxide 29 (19-29) mEq/L BUN 16 (7-20) mg/dL Creatinine 1.16 H (0.57-1.11) mg/dL Est GFR ( Amer) 59 L (> 60) Est GFR (Non-Af Amer) 48 L (> 60) BUN/Creatinine Ratio 14 (6-26) Glucose 102 H (70-99) mg/dL POC Glucose (58-89) Calculated Osmolality 291 (280-300) Lactic Acid (0.5-2.2) mmol/L Calcium 8.9 (8.6-10.8) mg/dL Magnesium 1.9 (1.6-2.6) mg/dL Creatine Kinase 39 (29-168) Units/L Troponin I (0-0.03) ng/mL Ur Specimen Adequacy Urine Color (Yellow) Urine Clarity (Clear) Urine pH (5.0-8.0) pH Units Ur Specific [place] (1.010-1.025) Urine Protein (Neg-Trace) mg/dL Urine Glucose (UA) (Normal) mg/dL Urine Ketones (Negative) mg/dL Urine Blood (Negative) Urine Nitrite (Negative) Urine Bilirubin (Negative) Urine Urobilinogen (Normal) mg/dL Ur Leukocyte Esterase (Negative) Urine Microscopic RBC (0-3) per hpf Urine Microscopic WBC (0-3) per hpf Ur Squamous Epith Cells (None-Few) per lpf Calcium Oxalate Crystal Urine Bacteria (None-Few) per hpf Hyaline Casts (None-Few) per lpf 03/21/17 03/21/17 03/21/17 Range/Units 06:15 06:43 06:47 WBC (4.3-11.1) K/mcL RBC (3.82-4.97) M/mcL Hgb (11.5-15.4) g/dL Hct (35.3-44.9) % MCV (83.0-100.0) fL MCH (28.0-33.3) pg MCHC (31.6-35.5) g/dL RDW (11.5-14.5) % Plt Count (140-400) K/mcL MPV (9.4-12.4) fL Immature Gran % (0-4) % Seg Neutrophils % % Lymphocytes % % Monocytes % % Eosinophils % % Basophils % % Neutrophils # (1.6-8.9) K/mcL Lymphocytes # (0.6-4.6) K/mcL Monocytes # (0.0-1.3) K/mcL Eosinophils # (0.0-0.6) K/mcL Basophils # (0.0-0.2) K/mcL PT (9.4-12.1) Seconds INR APTT (26.0-36.0) Seconds Sodium (136-145) mEq/L Potassium (3.5-4.5) mEq/L Chloride (98-109) mEq/L Carbon Dioxide (19-29) mEq/L BUN (7-20) mg/dL Creatinine (0.57-1.11) mg/dL Est GFR ( Amer) (> 60) Est GFR (Non-Af Amer) (> 60) BUN/Creatinine Ratio (6-26) Glucose (70-99) mg/dL POC Glucose 208 H (58-89) Calculated Osmolality (280-300) Lactic Acid 0.9 (0.5-2.2) mmol/L Calcium (8.6-10.8) mg/dL Magnesium (1.6-2.6) mg/dL Creatine Kinase (29-168) Units/L Troponin I 0.01 (0-0.03) ng/mL Ur Specimen Adequacy Urine Color (Yellow) Urine Clarity (Clear) Urine pH (5.0-8.0) pH Units Ur Specific [place] (1.010-1.025) Urine Protein (Neg-Trace) mg/dL Urine Glucose (UA) (Normal) mg/dL Urine Ketones (Negative) mg/dL Urine Blood (Negative) Urine Nitrite (Negative) Urine Bilirubin (Negative) Urine Urobilinogen (Normal) mg/dL Ur Leukocyte Esterase (Negative) Urine Microscopic RBC (0-3) per hpf Urine Microscopic WBC (0-3) per hpf Ur Squamous Epith Cells (None-Few) per lpf Calcium Oxalate Crystal Urine Bacteria (None-Few) per hpf Hyaline Casts (None-Few) per lpf 03/21/17 Range/Units 06:50 WBC (4.3-11.1) K/mcL RBC (3.82-4.97) M/mcL Hgb (11.5-15.4) g/dL Hct (35.3-44.9) % MCV (83.0-100.0) fL MCH (28.0-33.3) pg MCHC (31.6-35.5) g/dL RDW (11.5-14.5) % Plt Count (140-400) K/mcL MPV (9.4-12.4) fL Immature Gran % (0-4) % Seg Neutrophils % % Lymphocytes % % Monocytes % % Eosinophils % % Basophils % % Neutrophils # (1.6-8.9) K/mcL Lymphocytes # (0.6-4.6) K/mcL Monocytes # (0.0-1.3) K/mcL Eosinophils # (0.0-0.6) K/mcL Basophils # (0.0-0.2) K/mcL PT (9.4-12.1) Seconds INR APTT (26.0-36.0) Seconds Sodium (136-145) mEq/L Potassium (3.5-4.5) mEq/L Chloride (98-109) mEq/L Carbon Dioxide (19-29) mEq/L BUN (7-20) mg/dL Creatinine (0.57-1.11) mg/dL Est GFR ( Amer) (> 60) Est GFR (Non-Af Amer) (> 60) BUN/Creatinine Ratio (6-26) Glucose (70-99) mg/dL POC Glucose (58-89) Calculated Osmolality (280-300) Lactic Acid (0.5-2.2) mmol/L Calcium (8.6-10.8) mg/dL Magnesium (1.6-2.6) mg/dL Creatine Kinase (29-168) Units/L Troponin I (0-0.03) ng/mL Ur Specimen Adequacy See below A Urine Color Yellow (Yellow) Urine Clarity Turbid A (Clear) Urine pH 6.0 (5.0-8.0) pH Units Ur Specific [place] 1.017 (1.010-1.025) Urine Protein Trace (Neg-Trace) mg/dL Urine Glucose (UA) Normal (Normal) mg/dL Urine Ketones Negative (Negative) mg/dL Urine Blood Negative (Negative) Urine Nitrite Negative (Negative) Urine Bilirubin Negative (Negative) Urine Urobilinogen Normal (Normal) mg/dL Ur Leukocyte Esterase Moderate H (Negative) Urine Microscopic RBC 0-3 (0-3) per hpf Urine Microscopic WBC 5-15 H (0-3) per hpf Ur Squamous Epith Cells Many H (None-Few) per lpf Calcium Oxalate Crystal Present Urine Bacteria None Seen (None-Few) per hpf Hyaline Casts None Seen (None-Few) per lpf - Radiology Data Radiology results reviewed: Yes I reviewed the patient's radiology results. Chest X-Ray 03/21/17 06:25 IMPRESSION: Right lateral rib fractures which are acute or subacute. No acute cardiopulmonary disease. D/ / 03/21/2017 08:28:49 Alejandro Sawyer MD / lois Interpreting Provider: Alejandro Sawyer MD Cervical Spine CT 03/21/17 06:26 IMPRESSION: No acute abnormality of the cervical spine. D/ / Cornell Fischer MD / Cornell Fischer MD Interpreting Provider: Cornell Fischer MD Head CT 03/21/17 06:26 IMPRESSION: No acute intracranial abnormality. D/ / Sunny Gruber MD / Sunny Gruber MD Interpreting Provider: Sunny Gruber MD Chest CT 03/21/17 07:36 IMPRESSION: No acute cardiopulmonary process. Ascending aorta measures up to 4.2 cm and is not significantly changed. D/ / Ashly Isidro MD / Ashly Isidro MD Interpreting Provider: Ashly Isidro MD - EKG Data EKG attestation: Yes I reviewed and interpreted this EKG. EKG results narrative: EKG reviewed by Dr. Artie Floers as well. EKG shows a sinus rhythm with first- degree AV block and marketed left axis deviation at a rate of 71 bpm. WA interval 240, QRS duration 104, QT/QTc interval 410/433. No ectopy noted. No STEMI. Attestation Statement - Attestation Attestation: For this encounter, I have reviewed the [employer]CH[employer] APPRENTICE or PA documentation, treatment plan, and medical decision making; and I have had face to face time with this patient. Patient is 56-year-old elderly white female who has been having episodes of orthostatic hypotension that she reports since August of this year. Patient states that she has not had anyone be able to tell her why she is having these episodes or any abnormal testing during evaluation for these ongoing symptoms. Patient states that she had been recently placed on medication to raise her blood pressure to try and help prevent these symptoms. Patient arrives today following a syncopal episode upon waking from sleep this morning to go to the bathroom. Patient states that she was feeling some mild lightheadedness upon waking, denies any motion component or vertigo. States that upon standing she became extremely lightheaded became warm and had a syncopal episode at home. Patient denies any pain or injury related to the fall. She states that she did appreciate what she would rate as about a 1-2 out of 10 chest pressure following the episode which has since resolved. Patient hypotensive on arrival was placed on a media monitor continuous pulse ox and IV fluids initiated on arrival. Patient is awake alert and oriented with a GCS equals 15 with no focal neurologic deficits speech is clear and no mental status change. Patient at this time has no complaints besides ongoing lightheadedness that is worse with sitting up or standing. Patient's physical exam findings as documented. Patient had orthostatics done which showed significant hypotension with standing. Patient's receiving IV fluid bolus at this time. Patient was sent for CT evaluation of head and neck following syncopal episode as well as lab evaluations. At this time patient appears to be hypokalemic and will require potassium replacement and has been persistently hypotensive. Patient has had no fevers or chills, no upper respiratory symptoms, no GI symptoms at home or recent viral illness patient states otherwise she has been feeling fine with no recent illnesses. Patient has no urinary symptoms. We will continue to watch patient' s blood pressure closely and due to history of thoracic aortic aneurysm wall obtain CT imaging to ensure that this is not grown in size. Patient with good distal pulses throughout and currently no chest pain at this time. And will be to admit the patient for further evaluation of orthostatic hypotension, and hypokalemia.
[2017-03-21] MEDS ORDERED: 0.9 % Sodium Chloride 1,000 ML IVC ONE (06:52)
[2017-03-21] MEDS ORDERED: 0.9 % Sodium Chloride 1,000 ML ONE (06:53)
[2017-03-21 07:00] LABS: Bilirubin,Urine Negative (Negative); Blood,Urine Negative (Negative); Clarity,Urine Turbid (Clear); Color,Urine Yellow (Yellow); Glucose,Urine (UA) Normal (Normal); Ketones,Urine Negative (Negative); Leukocyte Esterase,Urine Moderate (Negative); Nitrite,Urine Negative (Negative); Protein,Urine Trace mg/dL (Neg-Trace); Specific Gravity,Urine 1.017 (1.010-1.025); Urobilinogen,Urine Normal (Normal)
[2017-03-21 07:02] LABS: Bacteria,Urine None Seen per hpf (None-Few); Hyaline Casts,Urine None Seen per lpf (None-Few); Squamous Epithelial Cell,Urine Many per lpf (None-Few)
[2017-03-21] MEDS ORDERED: Potassium Chloride 40 MEQ, Lidocaine 1% 2 ML in D5% in Water 500 ML IVPB ONE (07:08)
[2017-03-21 07:14] LABS: RBC,Urine 0-3 per hpf (0-3)
[2017-03-21 07:15] LABS: Calcium Oxalate Crystals,Urine Present
[2017-03-21] MEDS ORDERED: Aspirin 81 MG TAB.CHEW PO ONE (07:33)
[2017-03-21 07:42] LABS: Magnesium 1.9 mg/dL (1.6-2.6)
[2017-03-21] MEDS ORDERED: Naloxone 0.4 MG/ML INJ IVP PRN (09:14)
[2017-03-21] MEDS ORDERED: Ondansetron 4 MG/2 ML VIAL IVP PRN (09:14)
[2017-03-21] MEDS ORDERED: Acetaminophen 325 MG TABLET PO PRN (09:14)
--- NOTE | 2017-03-21 09:23 | Internal Med History&Physical ---
Date of Encounter: 03/21/17 Time of Encounter: 09:19 Assessment and Plan (1) Syncope due to orthostatic hypotension Current visit: Yes Status: Acute Syncope secondary to severe orthostatic hypotension and dehydration Start IV fluids, fall precautions, continue fludrocortisone and Northera Add Midodrin Stop cariprazin and hold amiloride Consider cardiology if not improving, check echocardiogram Omeprazole for GI prophylaxis and subcutaneous heparin for DVT prophylaxis. The patient will be admitted for observation. Full code. Time spent on this admission 40 minutes. High risk for falling (2) Bipolar disorder Current visit: No Status: Chronic And other psychiatric conditions, hold Cariprazine as it can cause orthostatic hypotension Qualifiers: Active/Remission status: remission status unspecified Qualified Code(s): F31.9 - Bipolar disorder, unspecified (3) Hypokalemia Current visit: No Status: Acute Replete as needed (4) S/P gastric bypass Current visit: No Status: Chronic (5) Diabetes mellitus Current visit: No Status: Chronic Monitor Qualifiers: Diabetes mellitus type: type 2 Diabetes mellitus complication status: with unspecified complications Diabetes mellitus intermediate teacher insulin use: without intermediate teacher use Qualified Code(s): E11.8 - Type 2 diabetes mellitus with unspecified complications Internal Medicine - H&P: HPI Chief complaint: Syncope Admitted From: Emergency Dept History of present illness: Ms. Solorzano is a 56 year old female with a past medical history of orthostatic hypotension and recurrent syncopal episodes treated by Dr. Dye/cardiology in [place] with fludrocortisone and Northera, has other history of psychiatric disorders and has been treated with cariprazine, also treated with amiloride which can also cause orthostatic hypotension. The patient denies taking any prazosin and says that she used to take blood pressure medications after losing a lot of weight. Earlier today she had a syncopal episode where she was walking towards her bathroom and after walking 10 steps she passed out, this episode was witnessed by one of her roommates who called EMS. That in the emergency room her vital signs were as follows: Lying down blood pressure 91/69 heart rate 71, sitting up 89/67 heart rate 73 and standing up blood pressure dropped to 56/39 and heart rate of 86. Patient was very dizzy. CT scan of the head and neck did not show any abnormalities. CT scan of the chest showed a prior known thoracic aortic aneurysm stable. Potassium was 2.6 creatinine 1.16 , chest x-ray shows subacute right rib fractures from her prior fall in December. Denies any other complaints, had some chest tightness earlier today. Past Med Surg Social Fam HX - Past Medical History Medical history: aortic aneurysm (Thoracic), asthma, diabetes (Not insulin- dependent), hyperlipidemia, migraine, other (Chronic kidney disease of stage III , migraines, GERD, asthma, diabetes type 2 not insulin-dependent, hyperlipidemia , ADHD, light bipolar, schizophrenia, tobacco use, syncopal episodes, adrenal insufficiency, gastric ulcers, occipital neuralgia) Psychiatric history: ADHD, bipolar, schizophrenia, other - Past Surgical History Surgical History: , cholecystectomy, hysterectomy, knee replacement, orthopedic, other, pacemaker/AICD, other (Hernia repair, gastric bypass) - Social History Smoking Status: Current every day smoker Packs per day: One pack per day Smokeless Tobacco Status: No Alcohol use: rarely Drug use: none - Family History Mother Living Status: Still Living Father Living Status: Still Living - Additional Family History Additional family history: Father with hypertension and skin cancer, mother with hypertension Internal Medicine - H&P: Meds Levomilnacipran HCl [Fetzima] 120 mg PO QAM 06/02/15 [History] Topiramate [Topamax] 50 mg PO QAM 06/02/15 [History] TraMADol [Ultram] 100 mg PO TID PRN 06/02/15 [History] clonazePAM [Clonazepam] 0.5 mg PO TID 06/02/15 [History] Carbidopa/Levodopa ER 50/200 [Sinemet ER 50-200 Tab] 1 tab PO HS 07/12/15 [ History] Cetirizine HCl [Zyrtec] 10 mg PO QPM 07/12/15 [History] Lubiprostone [Amitiza] 24 mcg PO BID 07/12/15 [History] Montelukast [Singulair] 10 mg PO QPM 07/12/15 [History] Naproxen [Naprosyn] 500 mg PO BID PRN 07/12/15 [History] Pantoprazole Sodium 40 mg PO BID 07/12/15 [History] Potassium Chloride 20 meq PO BID 07/12/15 [History] Sucralfate [Carafate] 1 gm PO TID 07/12/15 [History] Cariprazine HCl [Vraylar] 6 mg PO HS 12/18/16 [History] Droxidopa [Northera] 300 mg PO TID 12/18/16 [History] Fludrocortisone Acetate [Florinef] 0.2 mg PO DAILY 12/18/16 [History] Meclizine [Antivert] 25 mg PO DAILY PRN 12/18/16 [History] Naltrexone HCl [Revia] 50 mg PO 1200 12/18/16 [History] Pregabalin [Lyrica] 75 mg PO BID 12/18/16 [History] Protriptyline HCl 10 mg PO BID 12/18/16 [History] Topiramate 100 mg PO HS 12/18/16 [History] Hydrocortisone [Cortef] 10 mg PO HS #20 tablet 12/20/16 [Rx] Hydrocortisone [Cortef] 20 mg PO DAILY #20 tablet 12/20/16 [Rx] Guanfacine HCl [Intuniv] 4 mg PO DAILY 03/21/17 [History] Linaclotide [Linzess] 145 mcg PO DAILY 03/21/17 [History] Prazosin HCl [Minipress] 2 mg PO HS 03/21/17 [History] Spironolactone [Aldactone] 25 mg PO DAILY 03/21/17 [History] Tiagabine HCl [Gabitril] 4 mg PO BID 03/21/17 [History] Torsemide [Demadex] 40 mg PO QAM 03/21/17 [History] Vortioxetine Hydrobromide [Trintellix] 5 mg PO DAILY 03/21/17 [History] hydrOXYzine pamoate [HydrOXYzine Pamoate] 25 mg PO TID PRN 03/21/17 [History] Allergies oxcarbazepine [From Trileptal] Allergy (Verified 03/21/17 06:08) See Comments Patient unsure of reaction. Penicillins Allergy (Verified 03/21/17 06:08) Hives ezetimibe [From Zetia] Adverse Reaction (Verified 03/21/17 06:08) Vomiting All Systems PM: A 10-system review of systems was performed and is negative for pertinent findings except as documented above in the HPI. Review of systems: Denies any chest pain, short of breath, other systems out of the 10 review of her negative - Constitutional Vitals: Temp Pulse Resp BP Pulse Ox 98.9 F 60 16 104/77 94 03/21/17 06:10 03/21/17 08:31 03/21/17 08:31 03/21/17 08:31 03/21/17 08:31 General appearance: Present: A&O X 3 - Head Head exam: Present: atraumatic, normocephalic - Eye Eye exam: Present: PERRL, conjuntiva pink, sclera anicteric Pupils: Present: PERRL - Neck Neck exam general surgery: Present: supple, trachea midline. Absent: lymphadenopathy - Respiratory Respiratory exam: Present: CTAB. Absent: accessory muscle use, rales, rhonchi, wheezes - Cardiovascular Cardiovascular exam: Present: RRR, +S1, +S2. Absent: diastolic murmur, gallop, rubs, systolic murmur - GI/Abdominal GI/Abdominal exam: Present: normal bowel sounds, soft, no peritoneal signs. Absent: distended, tenderness - Extremities Exam Extremities exam: Present: warm, radial pulses palpable and symetrical. Absent : calf tenderness, cyanotic, pedal edema - Neurological Exam Neurological exam: Present: CN II-XII intact, oriented X3, no focal deficits. Absent: pronater drift, facial droop, speech deficit - Skin Skin exam: Present: dry, intact Internal Med - H&P Results - Labs CBC & Chem 7: 03/21/17 06:15 03/21/17 06:15
[2017-03-21] MEDS: Nicotine 21 MG PATCH.TD24 TD SCH (11:59)
[2017-03-21] MEDS: Sucralfate 1 GM TABLET PO SCH ×2 (11:59→17:05)
[2017-03-21] MEDS ORDERED: Potassium Chloride Elixir 20 MEQ/15 ML UDC PO ONE (12:12)
[2017-03-21] MEDS: 0.9 % Sodium Chloride 1,000 ML IVC SCH (17:05)
[2017-03-21] MEDS: clonazePAM 0.5 MG TABLET PO SCH ×2 (17:05→21:01)
[2017-03-21] MEDS: *HR* Heparin 5,000 UNIT/ML VIAL SQ SCH ×2 (17:11→21:01)
[2017-03-21] MEDS: traMADol 50 MG TABLET PO PRN (17:11)
[2017-03-21] MEDS: DROXIDOPA 300 MG PO SCH ×2 (17:11→21:34)
--- NOTE | 2017-03-21 17:29 | Electrocardiograph Report ---
[employer] 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
[2017-03-21] MEDS: Pregabalin 75 MG CAPSULE PO SCH (21:01)
[2017-03-21] MEDS: Topiramate 100 MG TABLET PO SCH (21:01)
[2017-03-21] MEDS: Hydrocortisone 10 MG TABLET PO SCH (21:01)
[2017-03-21] MEDS: Potassium Chloride Elixir 20 MEQ/15 ML UDC PO SCH (21:33)
[2017-03-21 23:25] LABS: BUN/Creatinine Ratio 12 (6-26); Blood Urea Nitrogen 12 mg/dL (7-20); Calcium 8.1 mg/dL (8.6-10.8); Carbon Dioxide 24 mEq/L (19-29); Chloride 109 mEq/L (98-109); Glucose 78 mg/dL (70-99); Osmolality,Calculated 285 (280-300); Sodium 138 mEq/L (136-145); eGFR For African Americans > 60 (> 60); eGFR For Non-African Americans 59 (> 60)
[2017-03-21 23:26] LABS: Potassium 4.2 mEq/L (3.5-4.5)
[2017-03-22] MEDS: 0.9 % Sodium Chloride 1,000 ML IVC SCH ×3 (03:13→20:29)
[2017-03-22 04:07] LABS: BUN/Creatinine Ratio 12 (6-26); Blood Urea Nitrogen 11 mg/dL (7-20); Calcium 8.5 mg/dL (8.6-10.8); Carbon Dioxide 26 mEq/L (19-29); Chloride 113 mEq/L (98-109); Glucose 101 mg/dL (70-99); Osmolality,Calculated 292 (280-300); Potassium 4.8 mEq/L (3.5-4.5); Sodium 141 mEq/L (136-145); eGFR For African Americans > 60 (> 60); eGFR For Non-African Americans > 60 (> 60)
[2017-03-22] MEDS: *HR* Heparin 5,000 UNIT/ML VIAL SQ SCH ×3 (06:00→21:10)
[2017-03-22] MEDS: Potassium Chloride Elixir 20 MEQ/15 ML UDC PO SCH ×2 (09:31→21:09)
[2017-03-22] MEDS: Spironolactone 25 MG TABLET PO SCH (09:31)
[2017-03-22] MEDS: Sucralfate 1 GM TABLET PO SCH ×3 (09:32→17:03)
[2017-03-22] MEDS: Pregabalin 75 MG CAPSULE PO SCH ×2 (09:33→21:07)
[2017-03-22] MEDS: Topiramate 25 MG TABLET PO SCH (09:33)
[2017-03-22] MEDS: Nicotine 21 MG PATCH.TD24 TD SCH (09:33)
[2017-03-22] MEDS: clonazePAM 0.5 MG TABLET PO SCH ×3 (09:33→21:07)
[2017-03-22] MEDS: (Vortioxetine Hydrobromide [Trintellix] 5 MG) PO SCH (09:34)
[2017-03-22] MEDS: DROXIDOPA 300 MG PO SCH ×3 (09:34→21:08)
[2017-03-22] MEDS: (Levomilnacipran Hcl [Fetzima] 120 MG) PO SCH (09:34)
[2017-03-22 11:43] LABS: Hemoglobin A1C 5.9 %
[2017-03-22] MEDS: traMADol 50 MG TABLET PO PRN ×2 (17:15→23:55)
--- NOTE | 2017-03-22 17:56 | Internal Med Progress Note ---
Date of Encounter: 03/22/17 Time of Encounter: 17:51 - Assessment and plan (1) Syncope and collapse Current Visit: Yes Status: Acute (2) Orthostatic hypotension Current Visit: Yes Status: Acute (3) Diabetic peripheral neuropathy Current Visit: Yes Status: Acute (4) Bipolar disorder Current Visit: No Status: Chronic Qualifiers: Active/Remission status: remission status unspecified Qualified Code(s): F31.9 - Bipolar disorder, unspecified (5) DVT prophylaxis Current Visit: No Status: Acute (6) PFO (patent foramen ovale) Current Visit: Yes Status: Acute - Subjective Interval history: Ms. Solorzano is a 56 year old female with a past medical history of orthostatic hypotension and recurrent syncopal episodes treated by Dr. Dye/cardiology in [place] with fludrocortisone and Northera, has other history of psychiatric disorders and has been treated with cariprazine, also treated with amiloride which can also cause orthostatic hypotension. She had bariatric surgery 4 years ago after which she was on B12 injection for a while but 6 months ago she stopped B12 after noticing that B12 level is adequate. #1 syncopal episode, patient was going to bathroom and after taking 10 step she fell down and passed out. This sounds more like vasovagal phenomena than related to her orthostatic hypotension. Echocardiogram showed normal LV systolic function with normal EF and some diastolic dysfunction however she also has a PFO. Cardiology is consulted. MRI brain will be ordered. She has history of bradycardia therefore I am reluctant to add beta rene. #2 peripheral neuropathy, patient mentions classical peripheral neuropathy secondary to diabetes. She is not a bad idea to start her on low-dose Neurontin. Gastric surgery can also cause vitamin deficiency therefore I will check folic acid and B12 and in my opinion she should be on these hormones on a regular basis regardless of the level as sooner or later deficiency will happen. Her Romberg sign is negative though. #3 orthostatic hypotension, patient also says that whenever she gets up she feels dizzy and the symptoms have aggravated in the last 6 months. She is on mineral steroid. Midodrine has been added and repeat orthostatic blood pressure shows correction of the defect. - Constitutional Vitals: Temp Pulse Resp BP Pulse Ox 98.5 F 64 15 130/82 100 03/22/17 15:00 03/22/17 15:00 03/22/17 15:00 03/22/17 15:00 03/22/17 15:00 General appearance: Present: A&O X 3 - Head Head exam: Present: atraumatic, normocephalic - Eye Eye exam: Present: PERRL, conjuntiva pink, sclera anicteric Pupils: Present: PERRL - Neck Neck exam general surgery: Present: supple, trachea midline. Absent: lymphadenopathy - Respiratory Respiratory exam: Present: CTAB. Absent: accessory muscle use, rales, rhonchi, wheezes - Cardiovascular Cardiovascular exam: Present: RRR, +S1, +S2. Absent: diastolic murmur, gallop, rubs, systolic murmur - GI/Abdominal GI/Abdominal exam: Present: normal bowel sounds, soft, no peritoneal signs. Absent: distended, tenderness - Extremities Exam Extremities exam: Present: warm, radial pulses palpable and symetrical. Absent : calf tenderness, cyanotic, pedal edema - Neurological Exam Neurological exam: Present: CN II-XII intact, oriented X3, no focal deficits. Absent: pronater drift, facial droop, speech deficit Additional comments: Nonfocal exam Romberg negative tandem walk negative - Skin Skin exam: Present: dry, intact Internal Medicine: Result - Labs CBC & Chem 7: 03/21/17 06:15 03/22/17 03:35 Labs: BMP 03/21/17 03/22/17 23:07 03:35 Sodium 138 141 Potassium 4.2 D 4.8 H Chloride 109 113 H Carbon Dioxide 24 26 BUN 12 11 Creatinine 0.97 0.91 Glucose 78 101 H Calcium 8.1 L 8.5 L - ABG Interpretation ABG results: PT/INR, D-dimer PT 11.8 Seconds (9.4-12.1) 03/21/17 06:15 Consult Discharge Plan - Plan Referrals: Lizette Nixon CNP [Partnered Physician] - 03/30/17 10:40 am
[2017-03-22] MEDS: Aspirin Enteric Coated 81 MG Tablet PO SCH (19:33)
[2017-03-22] MEDS: Levofloxacin 500 MG/100 ML 500 MG/100 ML BAG IVPB SCH (19:34)
[2017-03-22] MEDS: *HR* Morphine 2 MG/ML SYRINGE IVP PRN (20:29)
[2017-03-22] MEDS: Hydrocortisone 10 MG TABLET PO SCH (21:06)
[2017-03-22] MEDS: Topiramate 100 MG TABLET PO SCH (21:08)
[2017-03-23] MEDS: *HR* Morphine 2 MG/ML SYRINGE IVP PRN ×3 (04:23→22:33)
[2017-03-23] MEDS: *HR* Heparin 5,000 UNIT/ML VIAL SQ SCH ×3 (05:44→21:05)
[2017-03-23 06:22] LABS: Folate 4.3 ng/mL (7.0-31.4)
[2017-03-23] MEDS: 0.9 % Sodium Chloride 1,000 ML IVC SCH (07:30)
[2017-03-23] MEDS: Spironolactone 25 MG TABLET PO SCH (08:27)
[2017-03-23] MEDS: Pregabalin 75 MG CAPSULE PO SCH ×2 (08:28→21:05)
[2017-03-23] MEDS: clonazePAM 0.5 MG TABLET PO SCH ×3 (08:28→21:05)
[2017-03-23] MEDS: Aspirin Enteric Coated 81 MG Tablet PO SCH (08:29)
[2017-03-23] MEDS: Topiramate 25 MG TABLET PO SCH (08:29)
[2017-03-23] MEDS: (Vortioxetine Hydrobromide [Trintellix] 5 MG) PO SCH (08:29)
[2017-03-23] MEDS: DROXIDOPA 300 MG PO SCH ×3 (08:29→21:16)
[2017-03-23] MEDS: (Levomilnacipran Hcl [Fetzima] 120 MG) PO SCH (08:29)
[2017-03-23] MEDS: Sucralfate 1 GM TABLET PO SCH ×3 (08:29→17:40)
[2017-03-23] MEDS: Potassium Chloride Elixir 20 MEQ/15 ML UDC PO SCH (08:30)
[2017-03-23] MEDS: Nicotine 21 MG PATCH.TD24 TD SCH ×2 (08:33→17:39)
--- NOTE | 2017-03-23 08:51 | Cardiology Consult Note ---
Date of Encounter: 03/23/17 Time of Encounter: 08:49 Assessment and Plan (1) PFO (patent foramen ovale) Current Visit: Yes Status: Acute There was evidence of a PFO shown on Echocardiogram done here. At this time because there are no neurological deficits there is nothing that needs to be done for this at this time. She is already seeing Dr. Dye in [place] for her cardiology so we just recommend she follow up with them about this newly diagnosed PFO. At this time there is no need for cardiology to follow this patient and we will be signing off. (2) Syncope due to orthostatic hypotension Current Visit: Yes Status: Acute Her syncope is most likely due to her hypotension. We interrogated her medtronic pacemaker which is a dual chamber pacemaker and there were no events shown. She is still hypotensive. After looking at her medications we agree with her current regimen and we recommend increasing her midodrine to 5mg TID from 2.5mg. There is no other need for cardiology to follow this problem and she needs to follow up with her human resources operations specialist and video specialist for better control of her hypotension. Discussion w patient/family: The assessment and plan as outlined above was discussed with the patient and/or family members who expressed understanding and agreement. All questions were answered. Thank you for involving us in the care of your patient. Please call with any questions. History of Present Illness Consult date: 03/22/17 Requesting physician: Maria D Shelby Consult reason: PFO Chief complaint: Syncope History of present illness: Ms. Solorzano is a 56 year old female with pertinent medical history of Thoracic Aortic Aneurysm, Stage III CKD, Adrenal Insufficiency, hypotension, and a Pacer/ AICD placement who is here for syncope. She had a fall 3 days ago and came to the ED for further evaluation. She was diagnosed with orthostatic hypotension as well as syncope. She had an echo done to look further into her syncope which showed mild diastolic dysfunction, normal EF, and evidence of a PFO. She has not had any neurological symptoms since admission or preceding this admission. She has never had any strokes in the past. She did say that the left side of her face was a little numb a few weeks ago but it went away. She is followed by Dr. Dye in [place] for her hypotension as well as her Pacer/ AICD. She had the pacer placed due to chronic bradycardia. She is not complaining of any chest pain, difficulty breathing or pedal swelling at this time. She also has a thoracic Aortic Aneurysm that has been stable and no treatments have been needed at this time. She has no other cardiac history or family cardiac history. Past Med Surg Social Fam HX - Past Medical History Medical history: aortic aneurysm, asthma, diabetes, hyperlipidemia, migraine Psychiatric history: ADHD, bipolar, schizophrenia, other - Past Surgical History Surgical History: , cholecystectomy, hysterectomy, knee replacement, orthopedic, other, pacemaker/AICD, other - Social History Smoking Status: Current every day smoker Packs per day: One pack per day Smokeless Tobacco Status: No Alcohol use: rarely Drug use: none - Family History Mother Living Status: Still Living Father Name: don Living Status: Still Living Medications and Allergies Levomilnacipran HCl [Fetzima] 120 mg PO QAM 06/02/15 [History] Topiramate [Topamax] 50 mg PO QAM 06/02/15 [History] TraMADol [Ultram] 100 mg PO TID PRN 06/02/15 [History] clonazePAM [Clonazepam] 0.5 mg PO TID 06/02/15 [History] Carbidopa/Levodopa ER 50/200 [Sinemet ER 50-200 Tab] 1 tab PO HS 07/12/15 [ History] Cetirizine HCl [Zyrtec] 10 mg PO QPM 07/12/15 [History] Lubiprostone [Amitiza] 24 mcg PO BID 07/12/15 [History] Montelukast [Singulair] 10 mg PO QPM 07/12/15 [History] Naproxen [Naprosyn] 500 mg PO BID PRN 07/12/15 [History] Pantoprazole Sodium 40 mg PO BID 07/12/15 [History] Potassium Chloride 20 meq PO BID 07/12/15 [History] Sucralfate [Carafate] 1 gm PO TID 07/12/15 [History] Cariprazine HCl [Vraylar] 6 mg PO HS 12/18/16 [History] Droxidopa [Northera] 300 mg PO TID 12/18/16 [History] Fludrocortisone Acetate [Florinef] 0.2 mg PO DAILY 12/18/16 [History] Meclizine [Antivert] 25 mg PO DAILY PRN 12/18/16 [History] Naltrexone HCl [Revia] 50 mg PO 1200 12/18/16 [History] Pregabalin [Lyrica] 75 mg PO BID 12/18/16 [History] Protriptyline HCl 10 mg PO BID 12/18/16 [History] Topiramate 100 mg PO HS 12/18/16 [History] Hydrocortisone [Cortef] 10 mg PO HS #20 tablet 12/20/16 [Rx] Hydrocortisone [Cortef] 20 mg PO DAILY #20 tablet 12/20/16 [Rx] Guanfacine HCl [Intuniv] 4 mg PO DAILY 03/21/17 [History] Linaclotide [Linzess] 145 mcg PO DAILY 03/21/17 [History] Prazosin HCl [Minipress] 2 mg PO HS 03/21/17 [History] Spironolactone [Aldactone] 25 mg PO DAILY 03/21/17 [History] Tiagabine HCl [Gabitril] 4 mg PO BID 03/21/17 [History] Torsemide [Demadex] 40 mg PO QAM 03/21/17 [History] Vortioxetine Hydrobromide [Trintellix] 5 mg PO DAILY 03/21/17 [History] hydrOXYzine pamoate [HydrOXYzine Pamoate] 25 mg PO TID PRN 03/21/17 [History] Albuterol Sulfate [Proair Hfa] 1 puff IH Q6H PRN 03/22/17 [History] Mometasone/Formoterol [Dulera 200 Mcg/5 Mcg Inhaler] 2 inh IH BID 03/22/17 [ History] Allergies oxcarbazepine [From Trileptal] Allergy (Verified 03/21/17 06:08) See Comments Patient unsure of reaction. Penicillins Allergy (Verified 03/21/17 06:08) Hives ezetimibe [From Zetia] Adverse Reaction (Verified 03/21/17 06:08) Vomiting All Systems Review: A 10-system review of systems was performed and is negative for pertinent findings except as documented above in the HPI. - Constitutional Constitutional: frequent falls, no anorexia, no chills, no daytime sleepiness, no fatigue, no fever(s), no headache(s), no lethargy, no malaise, no night sweats, no snoring, no weakness, no weight gain, no weight loss - EENT Eyes: no blurred vision, no loss of vision, no pain Nose, mouth and throat: no bleeding gums, no dysphagia, no epistaxis, no mouth pain, no odynophagia, no sinus pain, no sore throat - Cardiovascular Cardiovascular: leg edema (When she stops her diuretic), lightheadedness, syncope, no chest pain at rest, no chest pain with exertion, no claudication, no diaphoresis, no dyspnea at rest, no dyspnea on exertion, no irregular heart rhythm, no radiating jaw, neck or arm pain, no orthopnea, no palpitations, no rapid heart rate, no slow heart rate - Respiratory Respiratory: no cough, no dyspnea, no hemoptysis, no wheezing - Gastrointestinal Gastrointestinal: no abdominal pain, no constipation, no diarrhea, no dysphagia , no melena, no nausea - Genitourinary Genitourinary: no dysuria, no hematuria - Musculoskeletal Musculoskeletal: no abnormal gait, no back pain, no muscle cramps, no muscle weakness - Integumentary Integumentary: no erythema, no rash, no unusual bruising - Neurological Neurological: dizziness, syncope, no abnormal speech, no focal weakness, no loss of vision, no memory loss, no numbness, no tingling - Psychiatric Psychiatric: anxiety, depression, no hallucinations, no panic attacks - Hematological/Lymphatic Hematologic/Lymphatic: no easy bleeding, no easy bruising Physical Examination Vital Signs, Last 4 Hours Temp Pulse Resp BP Pulse Ox 03/23/17 07:44 97.6 F 60 18 104/79 100 General: Conversant, No Apparent Distress HEENT: Atraumatic, Normocephaly, Mucus Membranes Moist Neck: No JVD, Normal carotid pulses Cardiac: Reg Rate and Rhythm, Normal S1 and S2, No Murmur Lungs: Normal Breath Sounds, No Wheeze, Rales, Rhonchi Neuro: Alert and responsive, No focal deficits noted (Complete neurological exam done showing now deficits) Abdomen: Soft, Non-Tender Skin: No rashes noted on visualized skin Musculoskeletal: No Chest Wall Tenderness Extremities: No Clubbing, No Cyanosis, No Edema, Normal Pulses Results 03/21/17 06:15 03/22/17 03:35 Lab Results 03/23/17 03:19 TSH 1.261 - Imaging and Cardiology Chest Xray: report reviewed, image reviewed Echo: report reviewed Other Results: Pacemaker Interrogation: It's a dual chamber Pacemaker with no events. - EKG Interpretation EKG results cardiology: personally reviewed, normal ECG, sinus rhythm Consult Discharge Plan - Plan Referrals: Lizette Nixon CNP [Partnered Physician] - 03/30/17 10:40 am
[2017-03-23] MEDS ORDERED: Cyanocobalamin (B-12) 1,000 MCG/ML VIAL IM ONE (10:15)
[2017-03-23] MEDS: Folic Acid 1 MG TABLET PO SCH (14:35)
--- NOTE | 2017-03-23 15:23 | Discharge Summary ---
Date of Encounter: 03/23/17 Time of Encounter: 15:19 - Discharge Diagnosis (1) Syncope and collapse Priority: Primary Status: Acute (2) Orthostatic hypotension Priority: Secondary Status: Acute (3) Diabetic peripheral neuropathy Priority: Secondary Status: Acute (4) Bipolar disorder Priority: Secondary Status: Chronic Qualifiers: Active/Remission status: remission status unspecified Qualified Code(s): F31.9 - Bipolar disorder, unspecified (5) DVT prophylaxis Priority: Secondary Status: Acute (6) PFO (patent foramen ovale) Priority: Secondary Status: Acute - Discharge Medications Prescriptions: cefaCLOR [Cefaclor] 500 mg PO BID #20 capsule Folic Acid 1 mg PO BID #60 tab Midodrine [ProAmatine] 5 mg PO 0800,1200,1700 #90 tab Pregabalin [Lyrica] 75 mg PO BID #30 Home Medications: Levomilnacipran HCl [Fetzima] 120 mg PO QAM 06/02/15 [History] Topiramate [Topamax] 50 mg PO QAM 06/02/15 [History] TraMADol [Ultram] 100 mg PO TID PRN 06/02/15 [History] clonazePAM [Clonazepam] 0.5 mg PO TID 06/02/15 [History] Carbidopa/Levodopa ER 50/200 [Sinemet ER 50-200 Tab] 1 tab PO HS 07/12/15 [ History] Cetirizine HCl [Zyrtec] 10 mg PO QPM 07/12/15 [History] Lubiprostone [Amitiza] 24 mcg PO BID 07/12/15 [History] Montelukast [Singulair] 10 mg PO QPM 07/12/15 [History] Naproxen [Naprosyn] 500 mg PO BID PRN 07/12/15 [History] Pantoprazole Sodium 40 mg PO BID 07/12/15 [History] Potassium Chloride 20 meq PO BID 07/12/15 [History] Sucralfate [Carafate] 1 gm PO TID 07/12/15 [History] Cariprazine HCl [Vraylar] 6 mg PO HS 12/18/16 [History] Droxidopa [Northera] 300 mg PO TID 12/18/16 [History] Fludrocortisone Acetate [Florinef] 0.2 mg PO DAILY 12/18/16 [History] Meclizine [Antivert] 25 mg PO DAILY PRN 12/18/16 [History] Naltrexone HCl [Revia] 50 mg PO 1200 12/18/16 [History] Pregabalin [Lyrica] 75 mg PO BID 12/18/16 [History] Protriptyline HCl 10 mg PO BID 12/18/16 [History] Topiramate 100 mg PO HS 12/18/16 [History] Hydrocortisone [Cortef] 10 mg PO HS #20 tablet 12/20/16 [Rx] Hydrocortisone [Cortef] 20 mg PO DAILY #20 tablet 12/20/16 [Rx] Guanfacine HCl [Intuniv] 4 mg PO DAILY 03/21/17 [History] Linaclotide [Linzess] 145 mcg PO DAILY 03/21/17 [History] Prazosin HCl [Minipress] 2 mg PO HS 03/21/17 [History] Spironolactone [Aldactone] 25 mg PO DAILY 03/21/17 [History] Tiagabine HCl [Gabitril] 4 mg PO BID 03/21/17 [History] Torsemide [Demadex] 40 mg PO QAM 03/21/17 [History] Vortioxetine Hydrobromide [Trintellix] 5 mg PO DAILY 03/21/17 [History] hydrOXYzine pamoate [HydrOXYzine Pamoate] 25 mg PO TID PRN 03/21/17 [History] Albuterol Sulfate [Proair Hfa] 1 puff IH Q6H PRN 03/22/17 [History] Mometasone/Formoterol [Dulera 200 Mcg/5 Mcg Inhaler] 2 inh IH BID 03/22/17 [ History] Acetaminophen [Tylenol] 650 mg PO Q6HR PRN tab 03/23/17 [Rx] Aspirin Enteric Coated [Aspirin EC] 81 mg PO DAILY 03/23/17 [Rx] Folic Acid 1 mg PO BID #60 tab 03/23/17 [Rx] Midodrine [ProAmatine] 5 mg PO 0800,1200,1700 #90 tab 03/23/17 [Rx] Nicotine Patch [Nicoderm] 21 mg TD Q24H 03/23/17 [Rx] Pregabalin [Lyrica] 75 mg PO BID #30 03/23/17 [Rx] cefaCLOR [Cefaclor] 500 mg PO BID #20 capsule 03/23/17 [Rx] Allergies/Adverse Reactions: Allergies oxcarbazepine [From Trileptal] Allergy (Verified 03/21/17 06:08) See Comments Patient unsure of reaction. Penicillins Allergy (Verified 03/21/17 06:08) Hives ezetimibe [From Zetia] Adverse Reaction (Verified 03/21/17 06:08) Vomiting Date of admission: 03/23/17 09:35 Primary care physician: Elkin Zamora Anticipated date of discharge: 03/23/17 - Patient Status Disposition: Home, Self-Care Condition: Fair Overall status at discharge: patient is progressing back to baseline - Discharge Instructions Follow Up With: Lizette Nixon CNP [Partnered Physician] - 03/30/17 10:40 am - Diet and Activity Activity: resume usual activities as tolerated Diet: advance to your usual diet Hospital course: Ms. Solorzano is a 56 year old female with a past medical history of orthostatic hypotension and recurrent syncopal episodes treated by Dr. Dye/cardiology in [place] with fludrocortisone and Northera, has other history of psychiatric disorders and has been treated with cariprazine, also treated with amiloride which can also cause orthostatic hypotension. She had bariatric surgery 4 years ago after which she was on B12 injection for a while but 6 months ago she stopped B12 after noticing that B12 level is adequate. #1 syncopal episode, patient was going to bathroom and after taking 10 step she fell down and passed out. This sounds more like vasovagal phenomena than related to her orthostatic hypotension. Echocardiogram showed normal LV systolic function with normal EF and some diastolic dysfunction however she also has a PFO. Cardiology is consulted and they have recommended that since she is asymptomatic no further treatment is necessary and they have refer her back to her bleach chlorinator in [place].. MRI brain shows a small vessel disease and will put her on baby aspirin.. She has history of bradycardia therefore I am reluctant to add beta rene. #2 peripheral neuropathy, patient mentions classical peripheral neuropathy secondary to diabetes. She is not a bad idea to start her on low-dose Neurontin. Gastric surgery can also cause vitamin deficiency therefore I will check folic acid and B12 and in my opinion she should be on these hormones on a regular basis regardless of the level as sooner or later deficiency will happen. Her Romberg sign is negative though. #3 orthostatic hypotension, patient also says that whenever she gets up she feels dizzy and the symptoms have aggravated in the last 6 months. She is on mineral steroid. Midodrine has been added and and seems to help her both clinically and when her blood pressure was checked it helps in reducing the difference between plane and standing systolic pressure dropped. At this point fludrocortisone can be stopped. #4 B12 and folic acid deficiency, she takes vitamins which is folic acid but apparently not enough for her to be therapeutic therefore I will put her on folic acid 2 mg daily considering the fact that her tablet daily has been impaired. I recommended her to continue B12 injections as today's B12 level is 275 therefore it means it has started declining. Frequency can be decongested. #5 patient complained about pain in her coccyx. She has had multiple that home in the past. X-ray did not show any fracture but signs of some chronic DJD perhaps related to previous falls. She sees interventional pain doctor and I have recommended her to discuss this matter with him and see if a caudal epidural can be tried. - Time Spent with Patient Total time spent providing and/or coordinating discharge services: Greater than 30 minutes - Constitutional Vitals: Temp Pulse Resp BP Pulse Ox 98.2 F 95 18 109/73 98 03/23/17 15:04 03/23/17 15:04 03/23/17 15:04 03/23/17 15:04 03/23/17 15:04 General appearance: Present: A&O X 3 - Head Head exam: Present: atraumatic, normocephalic - Eye Eye exam: Present: PERRL, conjuntiva pink, sclera anicteric Pupils: Present: PERRL - Neck Neck exam general surgery: Present: supple, trachea midline. Absent: lymphadenopathy - Respiratory Respiratory exam: Present: CTAB. Absent: accessory muscle use, rales, rhonchi, wheezes - Cardiovascular Cardiovascular exam: Present: RRR, +S1, +S2. Absent: diastolic murmur, gallop, rubs, systolic murmur - GI/Abdominal GI/Abdominal exam: Present: normal bowel sounds, soft, no peritoneal signs. Absent: distended, tenderness - Extremities Exam Extremities exam: Present: warm, radial pulses palpable and symetrical. Absent : calf tenderness, cyanotic, pedal edema - Neurological Exam Neurological exam: Present: CN II-XII intact, oriented X3, no focal deficits. Absent: pronater drift, facial droop, speech deficit - Skin Skin exam: Present: dry, intact
[2017-03-23] MEDS: Hydrocortisone 10 MG TABLET PO SCH (21:05)
[2017-03-23] MEDS: Topiramate 100 MG TABLET PO SCH (21:05)
[2017-03-23] MEDS: Levofloxacin 500 MG/100 ML 500 MG/100 ML BAG IVPB SCH (21:16)
[2017-03-23] MEDS: traMADol 50 MG TABLET PO PRN (21:16)
[2017-03-24] MEDS: traMADol 50 MG TABLET PO PRN (01:27)
[2017-03-24] MEDS: *HR* Morphine 2 MG/ML SYRINGE IVP PRN (03:53)
[2017-03-24] MEDS: *HR* Heparin 5,000 UNIT/ML VIAL SQ SCH ×2 (06:14→16:00)
[2017-03-24] MEDS: Sucralfate 1 GM TABLET PO SCH ×3 (07:55→16:21)
[2017-03-24] MEDS: Spironolactone 25 MG TABLET PO SCH (07:56)
[2017-03-24] MEDS: Pregabalin 75 MG CAPSULE PO SCH (07:56)
[2017-03-24] MEDS: Aspirin Enteric Coated 81 MG Tablet PO SCH (07:56)
[2017-03-24] MEDS: Nicotine 21 MG PATCH.TD24 TD SCH (07:56)
[2017-03-24] MEDS: clonazePAM 0.5 MG TABLET PO SCH ×2 (07:56→16:21)
[2017-03-24] MEDS: Topiramate 25 MG TABLET PO SCH (07:56)
[2017-03-24] MEDS: Folic Acid 1 MG TABLET PO SCH (07:56)
[2017-03-24] MEDS: DROXIDOPA 300 MG PO SCH ×2 (07:59→16:00)
[2017-03-24] MEDS: (Vortioxetine Hydrobromide [Trintellix] 5 MG) PO SCH (07:59)
[2017-03-24] MEDS: (Levomilnacipran Hcl [Fetzima] 120 MG) PO SCH (07:59)
[2017-03-24 13:23] LABS: Basophils # 0.1 K/mcL (0.0-0.2); Basophils % 0.7 %; Eosinophils # 0.5 K/mcL (0.0-0.6); Eosinophils % 4.4 %; Hematocrit 35.7 % (35.3-44.9); Immature Granulocytes % 0.4 % (0-4); Immature Platelets 3.1 % (1.1-6.1); Lymphocytes # 3.2 K/mcL (0.6-4.6); Lymphocytes % 29.7 %; Mean Corpuscular HGB Conc 30.5 g/dL (31.6-35.5); Mean Corpuscular Hemoglobin 26.3 pg (28.0-33.3); Mean Platelet Volume 10.2 fL (9.4-12.4); Monocytes # 0.8 K/mcL (0.0-1.3); Neutrophils # 6.2 K/mcL (1.6-8.9); Platelet Count 276 K/mcL (140-400); Red Blood Count 4.15 M/mcL (3.82-4.97); Red Cell Distribution Width 14.6 % (11.5-14.5); Segmented Neutrophils % 57.8 %
[2017-03-24 13:30] LABS: Hemoglobin 10.9 g/dL (11.5-15.4)
[2017-03-24 13:33] LABS: BUN/Creatinine Ratio 14 (6-26); Blood Urea Nitrogen 12 mg/dL (7-20); Calcium 8.4 mg/dL (8.6-10.8); Carbon Dioxide 25 mEq/L (19-29); Chloride 111 mEq/L (98-109); Glucose 72 mg/dL (70-99); Osmolality,Calculated 286 (280-300); Potassium 4.1 mEq/L (3.5-4.5); Sodium 139 mEq/L (136-145); eGFR For African Americans > 60 (> 60); eGFR For Non-African Americans > 60 (> 60)
--- NOTE | 2017-03-24 15:30 | Internal Med Progress Note ---
Date of Encounter: 03/24/17 Time of Encounter: 15:29 - Assessment and plan (1) Syncope and collapse Current Visit: Yes Status: Acute (2) Orthostatic hypotension Current Visit: Yes Status: Acute (3) Diabetic peripheral neuropathy Current Visit: Yes Status: Acute (4) Bipolar disorder Current Visit: No Status: Chronic Qualifiers: Active/Remission status: remission status unspecified Qualified Code(s): F31.9 - Bipolar disorder, unspecified (5) DVT prophylaxis Current Visit: No Status: Acute (6) PFO (patent foramen ovale) Current Visit: Yes Status: Acute - Subjective Interval history: Ms. Solorzano is a 56 year old female with a past medical history of orthostatic hypotension and recurrent syncopal episodes treated by Dr. Dye/cardiology in [place] with fludrocortisone and Northera, has other history of psychiatric disorders and has been treated with cariprazine, also treated with amiloride which can also cause orthostatic hypotension. She had bariatric surgery 4 years ago after which she was on B12 injection for a while but 6 months ago she stopped B12 after noticing that B12 level is adequate. #1 syncopal episode, patient was going to bathroom and after taking 10 step she fell down and passed out. This sounds more like vasovagal phenomena than related to her orthostatic hypotension. Echocardiogram showed normal LV systolic function with normal EF and some diastolic dysfunction however she also has a PFO. Cardiology is consulted. MRI brain will be ordered. She has history of bradycardia therefore I am reluctant to add beta rene. #2 peripheral neuropathy, patient mentions classical peripheral neuropathy secondary to diabetes. She is not a bad idea to start her on low-dose Neurontin. Gastric surgery can also cause vitamin deficiency therefore I will check folic acid and B12 and in my opinion she should be on these hormones on a regular basis regardless of the level as sooner or later deficiency will happen. Her Romberg sign is negative though. #3 orthostatic hypotension, patient also says that whenever she gets up she feels dizzy and the symptoms have aggravated in the last 6 months. She is on mineral steroid. Midodrine has been added and repeat orthostatic blood pressure shows correction of the defect. - Constitutional Vitals: Temp Pulse Resp BP Pulse Ox 97.7 F 67 17 141/93 97 03/24/17 07:00 03/24/17 11:34 03/24/17 07:00 03/24/17 11:35 03/24/17 07:00 General appearance: Present: A&O X 3 - Head Head exam: Present: atraumatic, normocephalic - Eye Eye exam: Present: PERRL, conjuntiva pink, sclera anicteric Pupils: Present: PERRL - Neck Neck exam general surgery: Present: supple, trachea midline. Absent: lymphadenopathy - Respiratory Respiratory exam: Present: CTAB. Absent: accessory muscle use, rales, rhonchi, wheezes - Cardiovascular Cardiovascular exam: Present: RRR, +S1, +S2. Absent: diastolic murmur, gallop, rubs, systolic murmur - GI/Abdominal GI/Abdominal exam: Present: normal bowel sounds, soft, no peritoneal signs. Absent: distended, tenderness - Extremities Exam Extremities exam: Present: warm, radial pulses palpable and symetrical. Absent : calf tenderness, cyanotic, pedal edema - Neurological Exam Neurological exam: Present: CN II-XII intact, oriented X3, no focal deficits. Absent: pronater drift, facial droop, speech deficit - Skin Skin exam: Present: dry, intact Internal Medicine: Result - Labs CBC & Chem 7: 03/24/17 13:14 03/24/17 13:14 Labs: Short CBC 03/24/17 Range/Units 13:14 WBC 10.8 (4.3-11.1) K/mcL Hgb 10.9 L D (11.5-15.4) g/dL Hct 35.7 (35.3-44.9) % Plt Count 276 (140-400) K/mcL Neutrophils # 6.2 (1.6-8.9) K/mcL BMP 03/24/17 13:14 Sodium 139 Potassium 4.1 Chloride 111 H Carbon Dioxide 25 BUN 12 Creatinine 0.84 Glucose 72 Calcium 8.4 L - ABG Interpretation ABG results: PT/INR, D-dimer PT 11.8 Seconds (9.4-12.1) 03/21/17 06:15 Consult Discharge Plan - Plan Instructions: Cefaclor (By mouth), Folic Acid (By mouth), Midodrine (By mouth) , Pregabalin (By mouth), Chest Pain (DC), Syncope (DC) Referrals: Lizette Nixon CNP [Partnered Physician] - 03/30/17 10:40 am Prescriptions: cefaCLOR [Cefaclor] 500 mg PO BID #20 capsule Folic Acid 1 mg PO BID #60 tab Midodrine [ProAmatine] 5 mg PO 0800,1200,1700 #90 tab Pregabalin [Lyrica] 75 mg PO BID #30
[2017-03-24 17:12] VITALS: BP 133/90
== END 2017-03-24 17:44 | disposition home or self-care (01) | DRG 312 ==
LOC: EMEROO 06:06 → 2NENU 06:06
PROVIDERS: ADMIT Internal Medicine; ATTEND Internal Medicine

== ENCOUNTER 2019-09-19 10:13 | Inpatient (IN) ==
[2019-09-19] MEDS ORDERED: Isovue-370 500 ML BOTTLE IVP ONE ×2 (10:20→11:34)
[2019-09-19] MEDS ORDERED: 0.9 % Sodium Chloride 500 ML IVC ONE (10:20)
[2019-09-19] MEDS ORDERED: Ondansetron 4 MG/2 ML VIAL IVP ONE (10:28)
[2019-09-19] MEDS ORDERED: *HR* FentaNYL (PF) 100 MCG/2 ML VIAL IVP ONE (10:45)
[2019-09-19 10:51] LABS: Basophils % 0.2 %; Eosinophils % 0.4 %; Hematocrit 40.1 % (35.3-44.9); Hemoglobin 12.5 g/dL (11.5-15.4); Immature Granulocytes % 0.3 % (0-4); Lymphocytes # 0.5 K/mcL (0.6-4.6); Lymphocytes % 4.7 %; Mean Corpuscular HGB Conc 31.2 g/dL (31.6-35.5); Mean Platelet Volume 9.5 fL (9.4-12.4); Monocytes # 0.3 K/mcL (0.0-1.3); Monocytes % 2.8 %; Neutrophils # 10.4 K/mcL (1.6-8.9); Platelet Count 325 K/mcL (140-400); Red Blood Count 5.01 M/mcL (3.82-4.97); Red Cell Distribution Width 19.4 % (11.5-14.5); Segmented Neutrophils % 91.6 %; White Blood Count 11.3 K/mcL (4.3-11.1)
[2019-09-19 11:13] LABS: BUN/Creatinine Ratio 6 (6-26); Blood Urea Nitrogen 6 mg/dL (6-20); Calcium 8.5 mg/dL (8.6-10.3); Carbon Dioxide 20 mEq/L (23-29); Chloride 106 mEq/L (98-107); Glucose 140 mg/dL (70-105); Osmolality,Calculated 284 (280-300); Potassium 4.4 mEq/L (3.5-5.1); Sodium 137 mEq/L (136-145); Troponin I < 0.03 ng/mL (< 0.04); eGFR For African Americans > 60 (> 60); eGFR For Non-African Americans > 60 (> 60)
[2019-09-19] MEDS ORDERED: Azithromycin 500 MG in 0.9 % Sodium Chloride 250 ML IVPB ONE (11:16)
[2019-09-19] MEDS ORDERED: cefTRIAXone 1,000 MG in Water for inj. (sterile) 10 ML IVP ONE (11:16)
[2019-09-19] MEDS ORDERED: Ondansetron ODT 4 MG TAB.RAPDIS SL PRN (12:39)
[2019-09-19] MEDS ORDERED: 0.9 % Sodium Chloride 1,000 ML IVC STA (12:43)
[2019-09-19] MEDS ORDERED: Cefepime HCl 2,000 MG in Water for inj. (sterile) 20 ML IVP SCH (12:47)
[2019-09-19] MEDS ORDERED: Nicotine 14 MG PATCH.TD24 TD ONE (12:47)
[2019-09-19] MEDS ORDERED: Fluticasone Propionate Nasal 50 MCG/SPRAY BOTTLE NS PRN (12:51)
[2019-09-19] MEDS ORDERED: Ringers Solution, Lactated 1,000 ML IVC ONE ×2 (13:49→15:03)
[2019-09-19] MEDS ORDERED: Dextrose Gel 15 GM/37.5 ML TUBE PO PRN ×2 (13:57→14:07)
[2019-09-19] MEDS ORDERED: *HR* Dextrose 50 % in Water (Syg) 50 ML SYRINGE IVP PRN (14:07)
[2019-09-19] MEDS ORDERED: D5% in Water 1,000 ML IVC PRN (14:07)
[2019-09-19] MEDS ORDERED: Ringers Solution, Lactated 1,000 ML ONE (15:23)
[2019-09-19] MEDS ORDERED: *HR* Norepinephrine 4 MG/4 ML VIAL IVC ONE (15:28)
[2019-09-19] MEDS ORDERED: 0.9 % Sodium Chloride 250 ML ONE (15:28)
[2019-09-19] MEDS: Norepinephrine 4 MG in 0.9 % Sodium Chloride 250 ML IVC SCH (16:02)
[2019-09-19] MEDS ORDERED: Famotidine 20 MG TABLET PO SCH (16:30)
[2019-09-19] MEDS ORDERED: Acetaminophen 325 MG TABLET PO PRN (17:23)
[2019-09-19] MEDS ORDERED: 0.9 % Sodium Chloride 1,000 ML IVC SCH (17:30)
[2019-09-19] MEDS: predniSONE 20 MG TABLET PO SCH (17:31)
[2019-09-19] MEDS: Pregabalin 50 MG CAPSULE PO SCH ×2 (17:31→19:43)
[2019-09-19] MEDS: Insulin LISPRO 300 UNITS/3 ML VIAL SQ SCH ×2 (17:31→19:51)
[2019-09-19] MEDS: Baclofen 10 MG TABLET PO SCH ×2 (17:31→19:43)
[2019-09-19] MEDS: Ipratropium/Albuterol Neb 3 ML IH SCH ×3 (17:31→23:17)
[2019-09-19] MEDS: Cefepime HCl 2,000 MG in 0.9 % Sodium Chloride Mini Bag 100 ML IVPB SCH ×2 (18:03→23:06)
[2019-09-19] MEDS: *HR* Heparin 5,000 UNIT/ML VIAL SQ SCH (18:03)
[2019-09-19] MEDS: rOPINIRole 1 MG TABLET PO SCH (19:43)
[2019-09-19 20:23] LABS: Adenovirus Not Detected (Not Detect); Bordetella Pertussis Not Detected (Not Detect); Chlamydophila pneumoniae Not Detected (Not Detect); Coronavirus 229E Not Detected (Not Detect); Coronavirus HKU1 Not Detected (Not Detect); Coronavirus NL63 Not Detected (Not Detect); Coronavirus OC43 Not Detected (Not Detect); Human Metapneumovirus Not Detected (Not Detect); Human Rhinovirus/Enterovirus Not Detected (Not Detect); Influenza A Subtype 2009 H1 Not Detected (Not Detect); Influenza B Not Detected (Not Detect); Mycoplasma pneumoniae Not Detected (Not Detect); Parainfluenza Virus 1 Not Detected (Not Detect); Parainfluenza Virus 2 Not Detected (Not Detect); Parainfluenza Virus 3 Not Detected (Not Detect); Parainfluenza Virus 4 Not Detected (Not Detect); Respiratory Syncytial Virus Not Detected (Not Detect)
[2019-09-19 20:58] LABS: Bilirubin,Urine Negative (Negative); Blood,Urine Negative (Negative); Clarity,Urine Clear (Clear); Color,Urine Yellow (Yellow); Glucose,Urine (UA) Normal (Normal); Ketones,Urine Negative (Negative); Leukocyte Esterase,Urine Negative (Negative); Nitrite,Urine Negative (Negative); Protein,Urine Negative (Neg-Trace); Specific Gravity,Urine > 1.030 (1.010-1.025); Urobilinogen,Urine Normal (Normal)
[2019-09-19] MEDS ORDERED: Acetaminophen/Aspirin/Caffeine TABLET PO PRN (20:58)
[2019-09-19 21:12] LABS: Alanine Aminotransferase 17 Units/L (7-52); Albumin 2.5 g/dL (3.5-5.7); Albumin/Globulin Ratio 1.3 (1.1-2.2); Alkaline Phosphatase 72 Units/L (34-104); Aspartate Amino Transferase 18 Units/L (13-39); BUN/Creatinine Ratio 9 (6-26); Bilirubin,Total 0.7 mg/dL (0.3-1.0); Blood Urea Nitrogen 9 mg/dL (6-20); Calcium 7.4 mg/dL (8.6-10.3); Carbon Dioxide 19 mEq/L (23-29); Chloride 109 mEq/L (98-107); Globulin 1.9 g/dL (2.4-3.5); Glucose 108 mg/dL (70-105); Osmolality,Calculated 277 (280-300); Potassium 4.3 mEq/L (3.5-5.1); Sodium 134 mEq/L (136-145); Total Protein 4.4 g/dL (6.4-8.9); eGFR For African Americans > 60 (> 60); eGFR For Non-African Americans 57 (> 60)
[2019-09-20] MEDS: Ipratropium/Albuterol Neb 3 ML IH SCH ×6 (03:52→23:22)
[2019-09-20 04:21] LABS: Hematocrit 29.8 % (35.3-44.9); Mean Corpuscular HGB Conc 32.6 g/dL (31.6-35.5); Mean Corpuscular Hemoglobin 25.7 pg (28.0-33.3); Mean Corpuscular Volume 78.8 fL (83.0-100.0); Mean Platelet Volume 9.4 fL (9.4-12.4); Platelet Count 223 K/mcL (140-400); Red Blood Count 3.78 M/mcL (3.82-4.97); Red Cell Distribution Width 19.2 % (11.5-14.5)
[2019-09-20 04:36] LABS: Hemoglobin 9.7 g/dL (11.5-15.4); White Blood Count 19.3 K/mcL (4.3-11.1)
[2019-09-20 04:39] LABS: BUN/Creatinine Ratio 13 (6-26); Blood Urea Nitrogen 12 mg/dL (6-20); Calcium 7.4 mg/dL (8.6-10.3); Carbon Dioxide 18 mEq/L (23-29); Chloride 110 mEq/L (98-107); Glucose 90 mg/dL (70-105); Magnesium 1.5 mg/dL (1.6-2.6); Osmolality,Calculated 277 (280-300); Potassium 4.5 mEq/L (3.5-5.1); Sodium 134 mEq/L (136-145); eGFR For African Americans > 60 (> 60); eGFR For Non-African Americans > 60 (> 60)
[2019-09-20 05:21] LABS: Anisocytosis 1+ (Not Present); Lymphocytes # 3.9 K/mcL (0.6-4.6); Neutrophils # 14.3 K/mcL (1.6-8.9)
[2019-09-20 05:22] LABS: Platelet Estimate Normal (Normal); Poikilocytosis 1+ (Not Present)
[2019-09-20] MEDS: *HR* Heparin 5,000 UNIT/ML VIAL SQ SCH ×2 (06:41→17:42)
[2019-09-20] MEDS ORDERED: SUMAtriptan succinate 25 MG TABLET PO PRN (08:45)
[2019-09-20] MEDS ORDERED: FLUoxetine 20 MG CAPSULE PO SCH (09:00)
[2019-09-20] MEDS ORDERED: Azithromycin 500 MG in 0.9 % Sodium Chloride 250 ML IVPB SCH (09:00)
[2019-09-20] MEDS: Cefepime HCl 2,000 MG in 0.9 % Sodium Chloride Mini Bag 100 ML IVPB SCH ×3 (09:26→23:19)
[2019-09-20] MEDS: Insulin LISPRO 300 UNITS/3 ML VIAL SQ SCH ×4 (09:26→19:43)
[2019-09-20] MEDS: Loratadine 10 MG TABLET PO SCH (09:27)
[2019-09-20] MEDS: Baclofen 10 MG TABLET PO SCH ×3 (09:27→19:36)
[2019-09-20] MEDS: Folic Acid 1 MG TABLET PO SCH (09:27)
[2019-09-20] MEDS: Nicotine 21 MG PATCH.TD24 TD SCH (09:28)
[2019-09-20] MEDS: Magnesium Oxide 400 MG TABLET PO SCH (09:28)
[2019-09-20] MEDS: predniSONE 20 MG TABLET PO SCH (09:28)
[2019-09-20] MEDS: Pregabalin 50 MG CAPSULE PO SCH ×3 (09:28→19:36)
[2019-09-20] MEDS: Cyanocobalamin (B-12) 1,000 MCG TABLET PO SCH (09:28)
[2019-09-20] MEDS: FLUoxetine 20 MG CAPSULE PO SCH (09:28)
[2019-09-20] MEDS: Lurasidone 20 MG TABLET PO SCH (10:16)
[2019-09-20] MEDS: Budesonide/Formoterol 160/4.5 1 PUFF INH IH SCH ×2 (12:37→20:10)
[2019-09-20] MEDS ORDERED: Nicotine 14 MG PATCH.TD24 TD ONE (12:47)
[2019-09-20] MEDS: SUMAtriptan succinate 50 MG TABLET PO PRN (13:17)
[2019-09-20] MEDS ORDERED: Furosemide 40 MG/4 ML VIAL IVP ONE ×2 (13:26→21:13)
[2019-09-20] MEDS: Norepinephrine 4 MG in 0.9 % Sodium Chloride 250 ML IVC SCH (19:34)
[2019-09-20] MEDS: rOPINIRole 1 MG TABLET PO SCH (19:36)
[2019-09-20] MEDS: clonazePAM 0.5 MG TABLET PO PRN (21:42)
[2019-09-20] MEDS ORDERED: *HR* LORazepam 2 MG/ML VIAL IVP ONE (22:16)
[2019-09-21 03:53] LABS: Hematocrit 30.9 % (35.3-44.9); Mean Platelet Volume 9.6 fL (9.4-12.4); Monocytes % 2.4 %
[2019-09-21 03:55] LABS: Basophils # 0.1 K/mcL (0.0-0.2); Basophils % 0.2 %; Hemoglobin 10.2 g/dL (11.5-15.4); Immature Granulocytes % 3.3 % (0-4); Lymphocytes # 0.7 K/mcL (0.6-4.6); Lymphocytes % 2.2 %; Mean Corpuscular Volume 78.6 fL (83.0-100.0); Monocytes # 0.7 K/mcL (0.0-1.3); Neutrophils # 27.2 K/mcL (1.6-8.9); Platelet Count 239 K/mcL (140-400); Red Blood Count 3.93 M/mcL (3.82-4.97); Red Cell Distribution Width 19.2 % (11.5-14.5); Segmented Neutrophils % 91.9 %; White Blood Count 29.6 K/mcL (4.3-11.1)
[2019-09-21] MEDS: Ipratropium/Albuterol Neb 3 ML IH SCH ×6 (04:01→23:56)
[2019-09-21 04:08] LABS: Alanine Aminotransferase 19 Units/L (7-52); Albumin 2.8 g/dL (3.5-5.7); Albumin/Globulin Ratio 1.1 (1.1-2.2); Alkaline Phosphatase 80 Units/L (34-104); Aspartate Amino Transferase 24 Units/L (13-39); BUN/Creatinine Ratio 18 (6-26); Bilirubin,Total 1.1 mg/dL (0.3-1.0); Blood Urea Nitrogen 16 mg/dL (6-20); Calcium 8.5 mg/dL (8.6-10.3); Carbon Dioxide 21 mEq/L (23-29); Chloride 108 mEq/L (98-107); Globulin 2.6 g/dL (2.4-3.5); Glucose 126 mg/dL (70-105); Magnesium 1.7 mg/dL (1.6-2.6); Osmolality,Calculated 285 (280-300); Potassium 3.7 mEq/L (3.5-5.1); Sodium 136 mEq/L (136-145); Total Protein 5.4 g/dL (6.4-8.9); eGFR For African Americans > 60 (> 60); eGFR For Non-African Americans > 60 (> 60)
[2019-09-21 04:17] LABS: ABG Base Excess -2 mEq/L (-2 to 3); ABG HCO3 22 mEq/L (21-27); ABG Oxygen Saturation 99 % (95-98); ABG PCO2 33 mmHg (35-45); ABG PH 7.43 pH Units (7.32-7.45); ABG PO2 112 mmHg (85-104); ABG TCO2 23 mEq/L (20-26)
[2019-09-21 04:45] LABS: Anisocytosis 1+ (Not Present); Burr Cells 1+ (Not Present); Platelet Estimate Normal (Normal)
[2019-09-21 04:46] LABS: Acanthocytes 1+ (Not Present)
[2019-09-21] MEDS: *HR* Heparin 5,000 UNIT/ML VIAL SQ SCH ×2 (05:10→17:03)
[2019-09-21] MEDS ORDERED: Furosemide 20 MG/2 ML VIAL IVP ONE (06:00)
[2019-09-21] MEDS ORDERED: Potassium Phosphate 44 MEQ in 0.9 % Sodium Chloride 250 ML IVPB PRN (07:25)
[2019-09-21] MEDS ORDERED: Calcium Gluconate 1gm/50mL 1 GM/50 ML BAG IVPB PRN (07:25)
[2019-09-21] MEDS: Loratadine 10 MG TABLET PO SCH (08:12)
[2019-09-21] MEDS: Magnesium Oxide 400 MG TABLET PO SCH (08:12)
[2019-09-21] MEDS: Lurasidone 20 MG TABLET PO SCH (08:12)
[2019-09-21] MEDS: Baclofen 10 MG TABLET PO SCH ×3 (08:12→19:58)
[2019-09-21] MEDS: Folic Acid 1 MG TABLET PO SCH (08:12)
[2019-09-21] MEDS: Pregabalin 50 MG CAPSULE PO SCH ×3 (08:12→19:58)
[2019-09-21] MEDS: FLUoxetine 20 MG CAPSULE PO SCH (08:13)
[2019-09-21] MEDS: Cyanocobalamin (B-12) 1,000 MCG TABLET PO SCH (08:13)
[2019-09-21 08:19] LABS: Mean Corpuscular Hemoglobin 25.6 pg (28.0-33.3)
[2019-09-21 08:20] LABS: Hematocrit 29.7 % (35.3-44.9); Hemoglobin 9.7 g/dL (11.5-15.4); Mean Corpuscular HGB Conc 32.7 g/dL (31.6-35.5); Mean Corpuscular Volume 78.4 fL (83.0-100.0); Mean Platelet Volume 9.9 fL (9.4-12.4); Platelet Count 242 K/mcL (140-400); Red Blood Count 3.79 M/mcL (3.82-4.97); Red Cell Distribution Width 18.9 % (11.5-14.5); White Blood Count 29.4 K/mcL (4.3-11.1)
[2019-09-21] MEDS: Budesonide/Formoterol 160/4.5 1 PUFF INH IH SCH ×2 (08:25→20:17)
[2019-09-21 08:34] LABS: BUN/Creatinine Ratio 18 (6-26); Blood Urea Nitrogen 17 mg/dL (6-20); Calcium 8.4 mg/dL (8.6-10.3); Carbon Dioxide 24 mEq/L (23-29); Chloride 107 mEq/L (98-107); Glucose 129 mg/dL (70-105); Osmolality,Calculated 291 (280-300); Potassium 3.6 mEq/L (3.5-5.1); Sodium 139 mEq/L (136-145); eGFR For African Americans > 60 (> 60); eGFR For Non-African Americans > 60 (> 60)
[2019-09-21] MEDS ORDERED: cefTRIAXone 2,000 MG in Water for inj. (sterile) 20 ML IVP SCH (09:00)
[2019-09-21] MEDS ORDERED: 0.9 % Sodium Chloride 500 ML ONE (09:03)
[2019-09-21 09:05] LABS: Lymphocytes # 0.9 K/mcL (0.6-4.6); Monocytes # 0.9 K/mcL (0.0-1.3); Neutrophils # 27.6 K/mcL (1.6-8.9); Platelet Estimate Normal (Normal)
[2019-09-21 09:06] LABS: Anisocytosis 1+ (Not Present); Ovalocytes 1+ (Not Present); Poikilocytosis 1+ (Not Present)
[2019-09-21] MEDS: Insulin LISPRO 300 UNITS/3 ML VIAL SQ SCH ×4 (09:07→19:59)
[2019-09-21] MEDS: Furosemide 240 MG in 0.9 % Sodium Chloride 96 ML IVC SCH (09:07)
[2019-09-21] MEDS: Cefepime HCl 2,000 MG in 0.9 % Sodium Chloride Mini Bag 100 ML IVPB SCH (09:08)
[2019-09-21] MEDS: Dexmedetomidine HCl 400 MCG/100 ML MLS IVC SCH ×2 (09:09→19:50)
[2019-09-21] MEDS: Chlorhexidine Rinse 15 ML MOUTHWASH MM SCH ×2 (09:09→19:51)
[2019-09-21] MEDS: Nicotine 21 MG PATCH.TD24 TD SCH (09:09)
[2019-09-21] MEDS: Pantoprazole 40 MG VIAL IVP SCH (09:10)
[2019-09-21] MEDS: Potassium Chloride 40 MEQ/200 ML BAG IVPB PRN (09:11)
[2019-09-21] MEDS ORDERED: Aminoglycoside Consult 1 EACH MC ONE (09:38)
[2019-09-21] MEDS: Cefepime HCl 2,000 MG in Water for inj. (sterile) 20 ML IVP SCH ×3 (09:59→23:40)
[2019-09-21] MEDS: Norepinephrine 4 MG in 0.9 % Sodium Chloride 250 ML IVC SCH (18:11)
[2019-09-21] MEDS: rOPINIRole 1 MG TABLET PO SCH (19:58)
[2019-09-21] MEDS: clonazePAM 0.5 MG TABLET PO PRN (19:58)
[2019-09-22] MEDS: Ipratropium/Albuterol Neb 3 ML IH SCH ×6 (03:20→23:32)
[2019-09-22] MEDS: Dexmedetomidine HCl 400 MCG/100 ML MLS IVC SCH (04:49)
[2019-09-22 04:51] LABS: BUN/Creatinine Ratio 21 (6-26); Blood Urea Nitrogen 20 mg/dL (6-20); Calcium 8.6 mg/dL (8.6-10.3); Carbon Dioxide 30 mEq/L (23-29); Chloride 98 mEq/L (98-107); Glucose 147 mg/dL (70-105); Osmolality,Calculated 295 (280-300); Potassium 2.8 mEq/L (3.5-5.1); Sodium 140 mEq/L (136-145); Troponin I < 0.03 ng/mL (< 0.04); eGFR For African Americans > 60 (> 60); eGFR For Non-African Americans 59 (> 60)
[2019-09-22] MEDS: *HR* Heparin 5,000 UNIT/ML VIAL SQ SCH ×2 (05:39→18:33)
[2019-09-22] MEDS: Furosemide 240 MG in 0.9 % Sodium Chloride 96 ML IVC SCH (07:02)
[2019-09-22 07:41] LABS: Hematocrit 31.3 % (35.3-44.9); Hemoglobin 10.1 g/dL (11.5-15.4); Mean Corpuscular HGB Conc 32.3 g/dL (31.6-35.5); Mean Corpuscular Hemoglobin 25.4 pg (28.0-33.3); Mean Corpuscular Volume 78.6 fL (83.0-100.0); Mean Platelet Volume 10.5 fL (9.4-12.4); Platelet Count 292 K/mcL (140-400); Red Blood Count 3.98 M/mcL (3.82-4.97)
[2019-09-22] MEDS ORDERED: Potassium Chloride Elixir 20 MEQ/15 ML UDC PO PRN (08:02)
[2019-09-22 08:10] LABS: Lymphocytes # 1.2 K/mcL (0.6-4.6); Monocytes # 1.2 K/mcL (0.0-1.3); Neutrophils # 26.7 K/mcL (1.6-8.9)
[2019-09-22] MEDS: Potassium Chloride 40 MEQ/200 ML BAG IVPB PRN (08:11)
[2019-09-22] MEDS: Budesonide/Formoterol 160/4.5 1 PUFF INH IH SCH ×2 (08:11→20:05)
[2019-09-22 08:14] LABS: Anisocytosis 1+ (Not Present); Burr Cells 1+ (Not Present); Platelet Estimate Normal (Normal)
[2019-09-22 08:15] LABS: Poikilocytosis 1+ (Not Present); Smudge Cells Present (Not Present)
[2019-09-22] MEDS: Cefepime HCl 2,000 MG in Water for inj. (sterile) 20 ML IVP SCH ×3 (08:29→23:38)
[2019-09-22] MEDS: Loratadine 10 MG TABLET PO SCH (08:30)
[2019-09-22] MEDS: Pantoprazole 40 MG VIAL IVP SCH (08:30)
[2019-09-22] MEDS: Folic Acid 1 MG TABLET PO SCH (08:30)
[2019-09-22] MEDS: Magnesium Oxide 400 MG TABLET PO SCH (08:30)
[2019-09-22] MEDS: Lurasidone 20 MG TABLET PO SCH (08:30)
[2019-09-22] MEDS: Pregabalin 50 MG CAPSULE PO SCH ×3 (08:30→20:44)
[2019-09-22] MEDS: Baclofen 10 MG TABLET PO SCH ×3 (08:30→20:44)
[2019-09-22] MEDS: Nicotine 21 MG PATCH.TD24 TD SCH (08:31)
[2019-09-22] MEDS: FLUoxetine 20 MG CAPSULE PO SCH (08:31)
[2019-09-22] MEDS: Cyanocobalamin (B-12) 1,000 MCG TABLET PO SCH (08:31)
[2019-09-22] MEDS: Chlorhexidine Rinse 15 ML MOUTHWASH MM SCH ×2 (08:32→20:43)
[2019-09-22] MEDS: Insulin LISPRO 300 UNITS/3 ML VIAL SQ SCH ×4 (08:32→20:43)
[2019-09-22] MEDS: clonazePAM 0.5 MG TABLET PO PRN (10:25)
[2019-09-22] MEDS: Norepinephrine 4 MG in 0.9 % Sodium Chloride 250 ML IVC SCH (14:24)
[2019-09-22] MEDS: Acyclovir 200 MG CAPSULE PO SCH ×2 (14:56→20:44)
[2019-09-22] MEDS: SUMAtriptan succinate 50 MG TABLET PO PRN (15:19)
[2019-09-22 16:18] LABS: Alanine Aminotransferase 14 Units/L (7-52); Albumin/Globulin Ratio 0.9 (1.1-2.2); Alkaline Phosphatase 90 Units/L (34-104); Aspartate Amino Transferase 15 Units/L (13-39); BUN/Creatinine Ratio 22 (6-26); Bilirubin,Total 0.8 mg/dL (0.3-1.0); Blood Urea Nitrogen 21 mg/dL (6-20); Calcium 8.8 mg/dL (8.6-10.3); Carbon Dioxide 32 mEq/L (23-29); Chloride 96 mEq/L (98-107); Globulin 3.3 g/dL (2.4-3.5); Glucose 114 mg/dL (70-105); Osmolality,Calculated 288 (280-300); Sodium 137 mEq/L (136-145); Total Protein 6.3 g/dL (6.4-8.9); eGFR For African Americans > 60 (> 60); eGFR For Non-African Americans 59 (> 60)
[2019-09-22] MEDS: Furosemide 40 MG/4 ML VIAL IVP SCH (18:34)
[2019-09-22] MEDS: rOPINIRole 1 MG TABLET PO SCH (20:44)
[2019-09-22] MEDS ORDERED: Furosemide 40 MG in 0.9 % Sodium Chloride 50 ML IV SCH (21:00)
[2019-09-23] MEDS: Ipratropium/Albuterol Neb 3 ML IH SCH ×5 (03:18→19:39)
[2019-09-23 03:33] LABS: Basophils # 0.1 K/mcL (0.0-0.2); Basophils % 0.3 %; Eosinophils # 0.4 K/mcL (0.0-0.6); Eosinophils % 2.2 %; Hematocrit 30.8 % (35.3-44.9); Hemoglobin 10.2 g/dL (11.5-15.4); Immature Granulocytes % 0.9 % (0-4); Lymphocytes # 1.1 K/mcL (0.6-4.6); Lymphocytes % 5.8 %; Mean Corpuscular HGB Conc 33.1 g/dL (31.6-35.5); Mean Corpuscular Hemoglobin 25.7 pg (28.0-33.3); Mean Corpuscular Volume 77.6 fL (83.0-100.0); Monocytes # 1.1 K/mcL (0.0-1.3); Monocytes % 5.5 %; Neutrophils # 16.2 K/mcL (1.6-8.9); Platelet Count 274 K/mcL (140-400); Red Blood Count 3.97 M/mcL (3.82-4.97); Red Cell Distribution Width 18.4 % (11.5-14.5); Segmented Neutrophils % 85.3 %
[2019-09-23 03:40] LABS: VBG Ionized Calcium 1.06 mmol/L (1.15-1.35)
[2019-09-23 03:47] LABS: Calcium 8.7 mg/dL (8.6-10.3); Magnesium 1.7 mg/dL (1.6-2.6); Potassium 3.4 mEq/L (3.5-5.1)
[2019-09-23] MEDS: *HR* Heparin 5,000 UNIT/ML VIAL SQ SCH ×2 (05:25→18:32)
[2019-09-23] MEDS: Potassium Chloride 40 MEQ/200 ML BAG IVPB PRN (05:33)
[2019-09-23] MEDS: Budesonide/Formoterol 160/4.5 1 PUFF INH IH SCH ×2 (07:31→19:39)
[2019-09-23] MEDS: Insulin LISPRO 300 UNITS/3 ML VIAL SQ SCH ×4 (07:46→20:40)
[2019-09-23] MEDS: Acyclovir 200 MG CAPSULE PO SCH ×3 (08:58→20:39)
[2019-09-23] MEDS: FLUoxetine 20 MG CAPSULE PO SCH (08:58)
[2019-09-23] MEDS: Loratadine 10 MG TABLET PO SCH (08:58)
[2019-09-23] MEDS: Magnesium Oxide 400 MG TABLET PO SCH (08:59)
[2019-09-23] MEDS: Furosemide 40 MG/4 ML VIAL IVP SCH ×2 (08:59→15:57)
[2019-09-23] MEDS: Nicotine 21 MG PATCH.TD24 TD SCH (08:59)
[2019-09-23] MEDS: Folic Acid 1 MG TABLET PO SCH (08:59)
[2019-09-23] MEDS: Cyanocobalamin (B-12) 1,000 MCG TABLET PO SCH (08:59)
[2019-09-23] MEDS: Pregabalin 50 MG CAPSULE PO SCH ×3 (08:59→20:39)
[2019-09-23] MEDS: Baclofen 10 MG TABLET PO SCH ×3 (08:59→20:39)
[2019-09-23] MEDS: Cefepime HCl 2,000 MG in Water for inj. (sterile) 20 ML IVP SCH ×2 (09:00→20:40)
[2019-09-23] MEDS: Pantoprazole 40 MG VIAL IVP SCH (09:00)
[2019-09-23] MEDS: Chlorhexidine Rinse 15 ML MOUTHWASH MM SCH (09:00)
[2019-09-23] MEDS ORDERED: Potassium Chloride Elixir 20 MEQ/15 ML UDC PO SCH (09:00)
[2019-09-23] MEDS: Lurasidone 20 MG TABLET PO SCH (09:04)
[2019-09-23] MEDS ORDERED: D5% in Water 1,000 ML IVC PRN (14:13)
[2019-09-23] MEDS ORDERED: Ondansetron ODT 4 MG TAB.RAPDIS SL PRN (14:13)
[2019-09-23] MEDS ORDERED: Dextrose Gel 15 GM/37.5 ML TUBE PO PRN ×2 (14:13)
[2019-09-23] MEDS ORDERED: Acetaminophen 325 MG TABLET PO PRN (14:13)
[2019-09-23] MEDS ORDERED: Fluticasone Propionate Nasal 50 MCG/SPRAY BOTTLE NS PRN (14:13)
[2019-09-23] MEDS ORDERED: *HR* Dextrose 50 % in Water (Syg) 50 ML SYRINGE IVP PRN (14:13)
[2019-09-23] MEDS: Acetaminophen/Aspirin/Caffeine TABLET PO PRN (18:43)
[2019-09-23] MEDS: rOPINIRole 1 MG TABLET PO SCH (20:39)
[2019-09-23] MEDS ORDERED: Cefepime HCl 2,000 MG in Water for inj. (sterile) 20 ML IVP SCH (21:00)
[2019-09-24] MEDS: Ipratropium/Albuterol Neb 3 ML IH SCH ×7 (00:08→23:20)
[2019-09-24] MEDS: *HR* Heparin 5,000 UNIT/ML VIAL SQ SCH ×2 (05:02→17:02)
[2019-09-24] MEDS: Budesonide/Formoterol 160/4.5 1 PUFF INH IH SCH ×2 (07:23→20:05)
[2019-09-24] MEDS: Insulin LISPRO 300 UNITS/3 ML VIAL SQ SCH ×4 (08:39→21:20)
[2019-09-24] MEDS: Lurasidone 20 MG TABLET PO SCH (08:40)
[2019-09-24] MEDS: FLUoxetine 20 MG CAPSULE PO SCH (08:40)
[2019-09-24] MEDS: Loratadine 10 MG TABLET PO SCH (08:41)
[2019-09-24] MEDS: Acyclovir 200 MG CAPSULE PO SCH ×3 (08:41→19:52)
[2019-09-24] MEDS: Pregabalin 50 MG CAPSULE PO SCH ×3 (08:41→19:53)
[2019-09-24] MEDS: Baclofen 10 MG TABLET PO SCH ×3 (08:41→19:52)
[2019-09-24] MEDS: Folic Acid 1 MG TABLET PO SCH (08:41)
[2019-09-24] MEDS: Cefepime HCl 2,000 MG in Water for inj. (sterile) 20 ML IVP SCH ×2 (08:42→19:53)
[2019-09-24] MEDS: Pantoprazole 40 MG VIAL IVP SCH (08:42)
[2019-09-24] MEDS: Magnesium Oxide 400 MG TABLET PO SCH (08:42)
[2019-09-24] MEDS: Furosemide 40 MG/4 ML VIAL IVP SCH ×2 (08:43→17:02)
[2019-09-24] MEDS: Nicotine 21 MG PATCH.TD24 TD SCH (08:54)
[2019-09-24] MEDS: Cyanocobalamin (B-12) 1,000 MCG TABLET PO SCH (09:30)
[2019-09-24] MEDS: SUMAtriptan succinate 25 MG TABLET PO PRN ×2 (10:59→20:19)
[2019-09-24] MEDS: rOPINIRole 1 MG TABLET PO SCH (19:53)
[2019-09-24] MEDS ORDERED: Water for inj. (sterile) 20 ML IV ONE (20:06)
[2019-09-25 02:41] LABS: Hematocrit 31.6 % (35.3-44.9); Hemoglobin 10.4 g/dL (11.5-15.4); Mean Corpuscular HGB Conc 32.9 g/dL (31.6-35.5); Mean Corpuscular Hemoglobin 25.4 pg (28.0-33.3); Mean Corpuscular Volume 77.1 fL (83.0-100.0); Mean Platelet Volume 10.3 fL (9.4-12.4); Platelet Count 326 K/mcL (140-400); Red Cell Distribution Width 17.7 % (11.5-14.5); White Blood Count 18.1 K/mcL (4.3-11.1)
[2019-09-25 02:49] LABS: BUN/Creatinine Ratio 23 (6-26); Blood Urea Nitrogen 25 mg/dL (6-20); Calcium 8.5 mg/dL (8.6-10.3); Carbon Dioxide 32 mEq/L (23-29); Chloride 88 mEq/L (98-107); Glucose 114 mg/dL (70-105); Osmolality,Calculated 275 (280-300); Potassium 3.4 mEq/L (3.5-5.1); Sodium 130 mEq/L (136-145); eGFR For African Americans > 60 (> 60); eGFR For Non-African Americans 51 (> 60)
[2019-09-25 03:55] LABS: Eosinophils # 0.4 K/mcL (0.0-0.6); Lymphocytes # 2.9 K/mcL (0.6-4.6); Monocytes # 1.5 K/mcL (0.0-1.3); Neutrophils # 13.4 K/mcL (1.6-8.9); Platelet Estimate Normal (Normal)
[2019-09-25] MEDS: Ipratropium/Albuterol Neb 3 ML IH SCH ×5 (04:19→20:17)
[2019-09-25] MEDS: *HR* Heparin 5,000 UNIT/ML VIAL SQ SCH ×2 (05:19→17:13)
[2019-09-25] MEDS: Budesonide/Formoterol 160/4.5 1 PUFF INH IH SCH ×2 (07:39→20:18)
[2019-09-25] MEDS: Insulin LISPRO 300 UNITS/3 ML VIAL SQ SCH ×4 (07:41→19:53)
[2019-09-25] MEDS: Baclofen 10 MG TABLET PO SCH ×3 (08:18→19:50)
[2019-09-25] MEDS: FLUoxetine 20 MG CAPSULE PO SCH (08:18)
[2019-09-25] MEDS: Lurasidone 20 MG TABLET PO SCH (08:18)
[2019-09-25] MEDS: clonazePAM 0.5 MG TABLET PO PRN (08:18)
[2019-09-25] MEDS: Folic Acid 1 MG TABLET PO SCH (08:18)
[2019-09-25] MEDS: Cyanocobalamin (B-12) 1,000 MCG TABLET PO SCH (08:19)
[2019-09-25] MEDS: Pregabalin 50 MG CAPSULE PO SCH ×3 (08:19→19:51)
[2019-09-25] MEDS: Loratadine 10 MG TABLET PO SCH (08:19)
[2019-09-25] MEDS: Furosemide 40 MG/4 ML VIAL IVP SCH ×2 (08:19→17:13)
[2019-09-25] MEDS: Nicotine 21 MG PATCH.TD24 TD SCH (08:19)
[2019-09-25] MEDS: Acyclovir 200 MG CAPSULE PO SCH ×3 (08:19→19:51)
[2019-09-25] MEDS: SUMAtriptan succinate 25 MG TABLET PO PRN (08:19)
[2019-09-25] MEDS: Magnesium Oxide 400 MG TABLET PO SCH (08:19)
[2019-09-25] MEDS: Cefepime HCl 2,000 MG in Water for inj. (sterile) 20 ML IVP SCH ×2 (08:20→19:51)
[2019-09-25] MEDS: Pantoprazole 40 MG VIAL IVP SCH (08:20)
[2019-09-25] MEDS: Acetaminophen/Aspirin/Caffeine TABLET PO PRN (10:18)
[2019-09-25] MEDS: rOPINIRole 1 MG TABLET PO SCH (19:50)
[2019-09-26] MEDS: Ipratropium/Albuterol Neb 3 ML IH SCH ×6 (00:17→20:21)
[2019-09-26 05:03] LABS: Basophils # 0.1 K/mcL (0.0-0.2); Basophils % 0.7 %; Eosinophils # 0.8 K/mcL (0.0-0.6); Eosinophils % 5.1 %; Hematocrit 32.8 % (35.3-44.9); Hemoglobin 10.9 g/dL (11.5-15.4); Immature Granulocytes % 9.1 % (0-4); Lymphocytes # 1.7 K/mcL (0.6-4.6); Lymphocytes % 11.4 %; Mean Corpuscular HGB Conc 33.2 g/dL (31.6-35.5); Mean Corpuscular Hemoglobin 25.1 pg (28.0-33.3); Mean Corpuscular Volume 75.6 fL (83.0-100.0); Mean Platelet Volume 9.9 fL (9.4-12.4); Monocytes # 1.4 K/mcL (0.0-1.3); Monocytes % 8.9 %; Neutrophils # 9.9 K/mcL (1.6-8.9); Platelet Count 393 K/mcL (140-400); Red Blood Count 4.34 M/mcL (3.82-4.97); Red Cell Distribution Width 17.6 % (11.5-14.5); Segmented Neutrophils % 64.8 %; White Blood Count 15.3 K/mcL (4.3-11.1)
[2019-09-26 05:25] LABS: BUN/Creatinine Ratio 26 (6-26); Blood Urea Nitrogen 28 mg/dL (6-20); Calcium 8.5 mg/dL (8.6-10.3); Carbon Dioxide 34 mEq/L (23-29); Chloride 86 mEq/L (98-107); Glucose 169 mg/dL (70-105); Osmolality,Calculated 275 (280-300); Potassium 3.1 mEq/L (3.5-5.1); Sodium 128 mEq/L (136-145); eGFR For African Americans > 60 (> 60); eGFR For Non-African Americans 51 (> 60)
[2019-09-26 05:31] LABS: Platelet Estimate Normal (Normal)
[2019-09-26] MEDS: *HR* Heparin 5,000 UNIT/ML VIAL SQ SCH ×2 (05:35→16:51)
[2019-09-26] MEDS: Acetaminophen/Aspirin/Caffeine TABLET PO PRN ×2 (06:44→20:39)
[2019-09-26] MEDS: Budesonide/Formoterol 160/4.5 1 PUFF INH IH SCH ×2 (07:30→20:21)
[2019-09-26] MEDS: Furosemide 40 MG/4 ML VIAL IVP SCH ×2 (08:06→16:51)
[2019-09-26] MEDS: Cefepime HCl 2,000 MG in Water for inj. (sterile) 20 ML IVP SCH ×2 (08:07→20:40)
[2019-09-26] MEDS: Cyanocobalamin (B-12) 1,000 MCG TABLET PO SCH (08:08)
[2019-09-26] MEDS: Pantoprazole 40 MG VIAL IVP SCH (08:08)
[2019-09-26] MEDS: Magnesium Oxide 400 MG TABLET PO SCH (08:08)
[2019-09-26] MEDS: FLUoxetine 20 MG CAPSULE PO SCH (08:08)
[2019-09-26] MEDS: Acyclovir 200 MG CAPSULE PO SCH ×3 (08:09→20:40)
[2019-09-26] MEDS: Loratadine 10 MG TABLET PO SCH (08:09)
[2019-09-26] MEDS: Folic Acid 1 MG TABLET PO SCH (08:09)
[2019-09-26] MEDS: Nicotine 21 MG PATCH.TD24 TD SCH (08:09)
[2019-09-26] MEDS: Lurasidone 20 MG TABLET PO SCH (08:09)
[2019-09-26] MEDS: Baclofen 10 MG TABLET PO SCH ×3 (08:09→20:39)
[2019-09-26] MEDS: Pregabalin 50 MG CAPSULE PO SCH ×3 (08:09→20:40)
[2019-09-26] MEDS: Insulin LISPRO 300 UNITS/3 ML VIAL SQ SCH ×4 (08:10→20:42)
[2019-09-26] MEDS: SUMAtriptan succinate 25 MG TABLET PO PRN (08:17)
[2019-09-26] MEDS: clonazePAM 0.5 MG TABLET PO PRN (20:39)
[2019-09-26] MEDS: rOPINIRole 1 MG TABLET PO SCH (20:40)
[2019-09-27] MEDS: Ipratropium/Albuterol Neb 3 ML IH SCH ×6 (00:23→19:35)
[2019-09-27 01:47] LABS: Hematocrit 32.8 % (35.3-44.9); Hemoglobin 10.9 g/dL (11.5-15.4); Mean Corpuscular HGB Conc 33.2 g/dL (31.6-35.5); Mean Corpuscular Hemoglobin 24.9 pg (28.0-33.3); Mean Corpuscular Volume 75.1 fL (83.0-100.0); Mean Platelet Volume 9.9 fL (9.4-12.4); Platelet Count 446 K/mcL (140-400); Red Blood Count 4.37 M/mcL (3.82-4.97); Red Cell Distribution Width 17.6 % (11.5-14.5); White Blood Count 18.2 K/mcL (4.3-11.1)
[2019-09-27 01:58] LABS: Calcium 8.6 mg/dL (8.6-10.3); Potassium 2.8 mEq/L (3.5-5.1)
[2019-09-27 03:42] LABS: Anisocytosis 1+ (Not Present); Basophils # 0.4 K/mcL (0.0-0.2); Eosinophils # 1.1 K/mcL (0.0-0.6); Monocytes # 0.4 K/mcL (0.0-1.3); Neutrophils # 12.4 K/mcL (1.6-8.9)
[2019-09-27] MEDS: *HR* Heparin 5,000 UNIT/ML VIAL SQ SCH ×2 (05:13→16:39)
[2019-09-27] MEDS: Budesonide/Formoterol 160/4.5 1 PUFF INH IH SCH ×2 (07:41→19:39)
[2019-09-27] MEDS: Furosemide 40 MG/4 ML VIAL IVP SCH ×2 (08:09→16:39)
[2019-09-27] MEDS: Cefepime HCl 2,000 MG in Water for inj. (sterile) 20 ML IVP SCH ×2 (08:10→22:06)
[2019-09-27] MEDS: Cyanocobalamin (B-12) 1,000 MCG TABLET PO SCH (08:11)
[2019-09-27] MEDS: Nicotine 21 MG PATCH.TD24 TD SCH (08:11)
[2019-09-27] MEDS: Magnesium Oxide 400 MG TABLET PO SCH (08:12)
[2019-09-27] MEDS: Acyclovir 200 MG CAPSULE PO SCH ×3 (08:12→22:08)
[2019-09-27] MEDS: Pregabalin 50 MG CAPSULE PO SCH ×3 (08:12→22:07)
[2019-09-27] MEDS: Baclofen 10 MG TABLET PO SCH ×3 (08:12→22:08)
[2019-09-27] MEDS: Lurasidone 20 MG TABLET PO SCH (08:12)
[2019-09-27] MEDS: FLUoxetine 20 MG CAPSULE PO SCH (08:12)
[2019-09-27] MEDS: Loratadine 10 MG TABLET PO SCH (08:12)
[2019-09-27] MEDS: Folic Acid 1 MG TABLET PO SCH (08:12)
[2019-09-27] MEDS: Insulin LISPRO 300 UNITS/3 ML VIAL SQ SCH ×4 (08:17→22:08)
[2019-09-27] MEDS: rOPINIRole 1 MG TABLET PO SCH (22:07)
[2019-09-27] MEDS: SUMAtriptan succinate 25 MG TABLET PO PRN (22:11)
[2019-09-27] MEDS: clonazePAM 0.5 MG TABLET PO PRN (22:11)
[2019-09-27] MEDS: Acetaminophen/Aspirin/Caffeine TABLET PO PRN (22:11)
[2019-09-28] MEDS: Ipratropium/Albuterol Neb 3 ML IH SCH ×6 (00:05→19:35)
[2019-09-28] MEDS: *HR* Heparin 5,000 UNIT/ML VIAL SQ SCH ×2 (05:18→16:42)
[2019-09-28] MEDS: Cefepime HCl 2,000 MG in Water for inj. (sterile) 20 ML IVP SCH ×2 (07:38→21:42)
[2019-09-28] MEDS: Furosemide 40 MG/4 ML VIAL IVP SCH ×2 (07:38→16:42)
[2019-09-28] MEDS: Nicotine 21 MG PATCH.TD24 TD SCH (07:39)
[2019-09-28] MEDS: FLUoxetine 20 MG CAPSULE PO SCH (07:40)
[2019-09-28] MEDS: Folic Acid 1 MG TABLET PO SCH (07:40)
[2019-09-28] MEDS: Acyclovir 200 MG CAPSULE PO SCH ×3 (07:40→21:43)
[2019-09-28] MEDS: Lurasidone 20 MG TABLET PO SCH (07:40)
[2019-09-28] MEDS: Cyanocobalamin (B-12) 1,000 MCG TABLET PO SCH (07:41)
[2019-09-28] MEDS: Loratadine 10 MG TABLET PO SCH (07:41)
[2019-09-28] MEDS: Pregabalin 50 MG CAPSULE PO SCH ×3 (07:41→21:43)
[2019-09-28] MEDS: Baclofen 10 MG TABLET PO SCH ×3 (07:41→21:43)
[2019-09-28] MEDS: Magnesium Oxide 400 MG TABLET PO SCH (07:41)
[2019-09-28] MEDS: Insulin LISPRO 300 UNITS/3 ML VIAL SQ SCH ×4 (07:44→21:43)
[2019-09-28] MEDS: Budesonide/Formoterol 160/4.5 1 PUFF INH IH SCH ×2 (07:47→19:36)
[2019-09-28 09:01] LABS: Basophils # 0.1 K/mcL (0.0-0.2); Basophils % 0.6 %; Eosinophils # 0.5 K/mcL (0.0-0.6); Eosinophils % 2.4 %; Hematocrit 32.5 % (35.3-44.9); Hemoglobin 11.1 g/dL (11.5-15.4); Immature Granulocytes % 5.8 % (0-4); Lymphocytes # 1.3 K/mcL (0.6-4.6); Lymphocytes % 6.7 %; Mean Corpuscular HGB Conc 34.2 g/dL (31.6-35.5); Mean Corpuscular Hemoglobin 25.2 pg (28.0-33.3); Mean Corpuscular Volume 73.9 fL (83.0-100.0); Mean Platelet Volume 9.6 fL (9.4-12.4); Monocytes # 1.3 K/mcL (0.0-1.3); Monocytes % 6.4 %; Neutrophils # 15.2 K/mcL (1.6-8.9); Platelet Count 540 K/mcL (140-400); Red Cell Distribution Width 17.7 % (11.5-14.5); Segmented Neutrophils % 78.1 %; White Blood Count 19.5 K/mcL (4.3-11.1)
[2019-09-28 09:16] LABS: Anisocytosis 1+ (Not Present); Hypochromasia Present (Not Present); Large Platelets Present (Not Present); Microcytosis Present (Not Present); Platelet Estimate Increased (Normal); Reactive Lymphocytes Present (Not Present); Toxic Granulation Present (Not Present)
[2019-09-28 09:18] LABS: Calcium 8.5 mg/dL (8.6-10.3); Potassium 2.6 mEq/L (3.5-5.1)
[2019-09-28] MEDS ORDERED: 0.9 % Sodium Chloride 250 ML ONE (10:32)
[2019-09-28] MEDS: rOPINIRole 1 MG TABLET PO SCH (21:43)
[2019-09-28] MEDS: clonazePAM 0.5 MG TABLET PO PRN (21:43)
[2019-09-29] MEDS: Ipratropium/Albuterol Neb 3 ML IH SCH ×7 (00:21→23:24)
[2019-09-29] MEDS: *HR* Heparin 5,000 UNIT/ML VIAL SQ SCH ×2 (04:53→16:45)
[2019-09-29 05:35] LABS: Basophils # 0.1 K/mcL (0.0-0.2); Basophils % 0.6 %; Eosinophils # 0.4 K/mcL (0.0-0.6); Eosinophils % 2.1 %; Hematocrit 31.9 % (35.3-44.9); Hemoglobin 10.5 g/dL (11.5-15.4); Immature Granulocytes % 4.7 % (0-4); Lymphocytes # 1.6 K/mcL (0.6-4.6); Mean Corpuscular HGB Conc 32.9 g/dL (31.6-35.5); Mean Corpuscular Hemoglobin 25.5 pg (28.0-33.3); Mean Corpuscular Volume 77.4 fL (83.0-100.0); Mean Platelet Volume 9.9 fL (9.4-12.4); Monocytes # 1.3 K/mcL (0.0-1.3); Monocytes % 6.5 %; Neutrophils # 15.4 K/mcL (1.6-8.9); Platelet Count 504 K/mcL (140-400); Red Blood Count 4.12 M/mcL (3.82-4.97); Red Cell Distribution Width 17.9 % (11.5-14.5); Segmented Neutrophils % 78.1 %; White Blood Count 19.7 K/mcL (4.3-11.1)
[2019-09-29 05:42] LABS: BUN/Creatinine Ratio 24 (6-26); Blood Urea Nitrogen 24 mg/dL (6-20); Calcium 8.4 mg/dL (8.6-10.3); Carbon Dioxide 31 mEq/L (23-29); Chloride 84 mEq/L (98-107); Glucose 140 mg/dL (70-105); Osmolality,Calculated 270 (280-300); Potassium 2.6 mEq/L (3.5-5.1); Sodium 127 mEq/L (136-145); eGFR For African Americans > 60 (> 60); eGFR For Non-African Americans 57 (> 60)
[2019-09-29] MEDS: Furosemide 40 MG/4 ML VIAL IVP SCH (07:13)
[2019-09-29] MEDS: Nicotine 21 MG PATCH.TD24 TD SCH (07:14)
[2019-09-29] MEDS: Insulin LISPRO 300 UNITS/3 ML VIAL SQ SCH ×4 (07:14→20:36)
[2019-09-29] MEDS: Cefepime HCl 2,000 MG in Water for inj. (sterile) 20 ML IVP SCH ×2 (07:14→20:33)
[2019-09-29] MEDS: Lurasidone 20 MG TABLET PO SCH (07:15)
[2019-09-29] MEDS: FLUoxetine 20 MG CAPSULE PO SCH (07:16)
[2019-09-29] MEDS: Folic Acid 1 MG TABLET PO SCH (07:16)
[2019-09-29] MEDS: Cyanocobalamin (B-12) 1,000 MCG TABLET PO SCH (07:16)
[2019-09-29] MEDS: Pregabalin 50 MG CAPSULE PO SCH ×3 (07:16→20:34)
[2019-09-29] MEDS: Loratadine 10 MG TABLET PO SCH (07:16)
[2019-09-29] MEDS: Baclofen 10 MG TABLET PO SCH ×3 (07:16→20:35)
[2019-09-29] MEDS: Acyclovir 200 MG CAPSULE PO SCH ×3 (07:16→20:34)
[2019-09-29] MEDS: Magnesium Oxide 400 MG TABLET PO SCH (07:16)
[2019-09-29] MEDS: Budesonide/Formoterol 160/4.5 1 PUFF INH IH SCH ×2 (07:35→19:45)
[2019-09-29] MEDS ORDERED: Potassium Chloride Elixir 20 MEQ/15 ML UDC PO ONE (08:15)
[2019-09-29] MEDS ORDERED: Potassium Chloride 20 MEQ, Lidocaine 1% 2 ML in 0.9 % Sodium Chloride 250 ML IVPB ONE (09:07)
[2019-09-29] MEDS: rOPINIRole 1 MG TABLET PO SCH (20:35)
[2019-09-30 01:22] LABS: Basophils # 0.1 K/mcL (0.0-0.2); Basophils % 0.5 %; Eosinophils # 0.4 K/mcL (0.0-0.6); Eosinophils % 2.1 %; Hematocrit 30.9 % (35.3-44.9); Hemoglobin 10.1 g/dL (11.5-15.4); Immature Granulocytes % 3.6 % (0-4); Lymphocytes # 2.1 K/mcL (0.6-4.6); Lymphocytes % 9.8 %; Mean Corpuscular HGB Conc 32.7 g/dL (31.6-35.5); Mean Corpuscular Hemoglobin 25.4 pg (28.0-33.3); Mean Corpuscular Volume 77.6 fL (83.0-100.0); Monocytes # 1.3 K/mcL (0.0-1.3); Monocytes % 6.1 %; Neutrophils # 16.6 K/mcL (1.6-8.9); Platelet Count 528 K/mcL (140-400); Red Blood Count 3.98 M/mcL (3.82-4.97); Red Cell Distribution Width 17.9 % (11.5-14.5); Segmented Neutrophils % 77.9 %; White Blood Count 21.3 K/mcL (4.3-11.1)
[2019-09-30 01:37] LABS: BUN/Creatinine Ratio 23 (6-26); Blood Urea Nitrogen 23 mg/dL (6-20); Calcium 8.4 mg/dL (8.6-10.3); Carbon Dioxide 28 mEq/L (23-29); Chloride 90 mEq/L (98-107); Glucose 118 mg/dL (70-105); Osmolality,Calculated 271 (280-300); Potassium 3.3 mEq/L (3.5-5.1); Sodium 128 mEq/L (136-145); eGFR For African Americans > 60 (> 60); eGFR For Non-African Americans 55 (> 60)
[2019-09-30] MEDS: Ipratropium/Albuterol Neb 3 ML IH SCH ×3 (03:57→11:09)
[2019-09-30] MEDS: *HR* Heparin 5,000 UNIT/ML VIAL SQ SCH (05:37)
[2019-09-30] MEDS: Budesonide/Formoterol 160/4.5 1 PUFF INH IH SCH (07:34)
[2019-09-30] MEDS: Nicotine 21 MG PATCH.TD24 TD SCH (08:08)
[2019-09-30] MEDS: Magnesium Oxide 400 MG TABLET PO SCH (08:08)
[2019-09-30] MEDS: Baclofen 10 MG TABLET PO SCH (08:08)
[2019-09-30] MEDS: FLUoxetine 20 MG CAPSULE PO SCH (08:09)
[2019-09-30] MEDS: Acyclovir 200 MG CAPSULE PO SCH (08:09)
[2019-09-30] MEDS: Lurasidone 20 MG TABLET PO SCH (08:09)
[2019-09-30] MEDS: Pregabalin 50 MG CAPSULE PO SCH (08:09)
[2019-09-30] MEDS: Folic Acid 1 MG TABLET PO SCH (08:09)
[2019-09-30] MEDS: Cyanocobalamin (B-12) 1,000 MCG TABLET PO SCH (08:09)
[2019-09-30] MEDS: Loratadine 10 MG TABLET PO SCH (08:09)
[2019-09-30] MEDS: Insulin LISPRO 300 UNITS/3 ML VIAL SQ SCH (08:10)
[2019-09-30] MEDS: Cefepime HCl 2,000 MG in Water for inj. (sterile) 20 ML IVP SCH (08:10)
[2019-09-30] MEDS ORDERED: Torsemide 20 MG TABLET PO SCH (09:00)
[2019-09-30 11:18] VITALS: BP 101/72
== END 2019-09-30 13:39 | disposition home or self-care (01) | DRG 871 ==
LOC: 3BNU 10:13 → EMEROOARM 10:13 → 2ANU 13:59 → ICNU 15:19 → SUATTDRO 21:44 → 2NNU 09-23 18:19
PROVIDERS: ADMIT Internal Medicine; ATTEND Internal Medicine